=== PATIENT | female | born 1950 | race African-American/Black ===

== ENCOUNTER 2016-06-27 15:05 | Emergency (ER) | payer OTHER ==
[2016-06-27 15:12] VITALS: BP 117/77; PULSE 64; TEMP 98.5; BMI 39.3
--- NOTE | 2016-06-27 15:14 | PDOC ---
Rapid Medical Evaluation Chief Complaint: Pain Time Seen by Provider: 06/27/16 15:07 Medical Evaluation: Allergies Allergy/AdvReac Type Severity Reaction Status Date / Time apple [Apple] Allergy Mild INTESTINAL Verified 06/27/16 15:08 OBSTRUCTION codeine [Codeine] Allergy SHAKING Verified 06/27/16 15:08 ibuprofen Allergy INTESTINAL Verified 06/27/16 15:08 OBSTRUCTION NSAIDS (Non-Steroidal Allergy INTESTINAL Verified 06/27/16 15:08 Anti-Inflamma OBSTRUCTION 06/27/16 15:10 RME; I have performed a brief in person evaluation of this pt CC 3 weeks of right shoulder pain, geeting worse PE; VSS; tender anterior shoulder, limited ROM Xray ordered, no pain meds desired by pt to FT. JR
== END 2016-06-27 16:56 | disposition left against medical advice (07) ==
LOC: JERFT 15:05
DX: M25.511 Pain in right shoulder (principal)
CPT/HCPCS: 73030-TC-RT; 99281-25

== ENCOUNTER 2016-06-27 16:54 | Emergency (ER) | payer OTHER ==
[2016-06-27 16:58] VITALS: BP 128/57; PULSE 65; TEMP 98.3; BMI 39.3
--- NOTE | 2016-06-27 17:26 | PDOC ---
History of Present Illness - General Chief Complaint: Injury Stated Complaint: RT SHOULDER PAIN/ARM PAIN Time Seen by Provider: 06/27/16 17:11 History Source: Patient Exam Limitations: No Limitations - History of Present Illness Initial Comments: 06/27/16 17:21 65 yr female with c/o 3 weeks right shoulder pain. Pt states worse at night pain relieved with naprosyn. Pt denies trauma. no numbness or tingling. Pt is right hand dominant. Extremity Pain Location - Extremity Pain Location Extremity Pain Locations: right: other (shoulder) Past History - Travel Traveled outside of the country in the last 30 days: No Close contact w/someone who was outside of country & ill: No - Past Medical History Allergies/Adverse Reactions: Allergies Allergy/AdvReac Type Severity Reaction Status Date / Time apple [Apple] Allergy Mild INTESTINAL Verified 06/27/16 16:56 OBSTRUCTION codeine [Codeine] Allergy SHAKING Verified 06/27/16 16:56 ibuprofen Allergy INTESTINAL Verified 06/27/16 16:56 OBSTRUCTION NSAIDS (Non-Steroidal Allergy INTESTINAL Verified 06/27/16 16:56 Anti-Inflamma OBSTRUCTION Home Medications: Ambulatory Orders Diphenhydramine HCl [Benadryl Capsule -] 25 mg PO ONCE PRN 06/26/15 Metformin HCl 500 mg PO BID 06/26/15 Albuterol Sulfate Inhaler - [Ventolin HFA Inhaler -] 1 - 2 inh PO Q4H PRN #1 inhaler 06/29/15 Atorvastatin Ca [Lipitor] 10 mg PO HS #30 tablet 02/24/16 Carvedilol [Coreg -] 6.25 mg PO BID #60 tablet 02/24/16 Prednisone [Deltasone -] 10 mg PO ASDIR #30 tab 02/24/16 Valsartan [Diovan] 80 mg PO DAILY #30 tablet 02/24/16 Anemia: No Asthma: Yes Cancer: No Cardiac Disorders: No CVA: No COPD: No CHF: No Dementia: No Diabetes: Yes GI Disorders: Yes (OBSTRUCTION) Disorders: No HTN: No Hypercholesterolemia: No HIV: Yes Liver Disease: No Suicide Attempt (Hx): No Seizures: No Thyroid Disease: No - Surgical History Abdominal Surgery: Yes (tubal ligation) Appendectomy: No Cardiac Surgery: No Cholecystectomy: No Lung Surgery: No Neurologic Surgery: No Orthopedic Surgery: No - Immunization History Immunization Up to Date: Yes - Psycho/Social/Smoking Cessation Hx Anxiety: No Suicidal Ideation: No Smoking Status: No Smoking History: Never smoked Have you smoked in the past 12 months: No Number of Cigarettes Smoked Daily: 0 If you are a former smoker, when did you quit?: 04/2011 Cigars Per Day: 0 Information on smoking cessation initiated: No 'Breaking Loose' booklet given: 08/09/12 Hx Alcohol Use: No Drug/Substance Use Hx: No Substance Use Type: None Hx Substance Use Treatment: No Review of Systems - Review of Systems Able to Perform ROS?: Yes Is the patient limited Romanian proficient: No Constitutional: No: Symptoms Reported HEENTM: No: Symptoms Reported Respiratory: No: Symptoms reported Cardiac (ROS): No: Symptoms Reported ABD/GI: No: Symptoms Reported : No: Symptoms Reported Musculoskeletal: Yes: Symptoms Reported *Physical Exam - Vital Signs Last Vital Signs Temp Pulse Resp BP Pulse Ox 98.3 F 65 18 128/57 100 06/27/16 16:56 06/27/16 16:56 06/27/16 16:56 06/27/16 16:56 06/27/16 16:56 - Physical Exam General Appearance: Yes: Nourished, Appropriately Dressed HEENT: positive: EOMI, ABIGAIL Neck: positive: Supple Respiratory/Chest: positive: Lungs Clear, Normal Breath Sounds Cardiovascular: positive: Regular Rhythm, Regular Rate Musculoskeletal: positive: Normal Inspection Extremity: positive: Normal Capillary Refill, Normal Inspection, Normal Range of Motion, Tender (anterior right shoulder, limited ROM due to pain, no crepitus or bony step off ) Integumentary: positive: Normal Color, Dry, Warm Procedures - Splinting Sling: Yes (right shoulder) Medical Decision Making - Medical Decision Making 06/27/16 17:23 cc: 3 weeks right shoulder pain (Pt left after xray and RME evaluation earlier today, was not seen by any other staff) xray is negative pt has seen her primary for this and was given aleve will place sling and refer to ortho for follow up pt agrees with plan all questions asked and answered. Pt DENIES any allergy to naprosyn 06/27/16 17:24 *DC/Admit/Observation/Transfer Diagnosis at time of Disposition: Shoulder pain, right Qualifiers: Chronicity: acute Qualified Code(s): M25.511 - Pain in right shoulder - Discharge Dispostion Disposition: HOME Condition at time of disposition: Good - Referrals Referrals: Ruthie Azul [Primary Care Provider] - Enmanuel Bay MD [Staff Physician] - - Patient Instructions Additional Instructions: use the sling while awake remove to sleep and bathe continue to take Naprosyn for pain follow with the orthopedist this week or next week avoid lifting, carrying heavy objects with right arm when you can use the left return to ER for any worsening symptoms
== END 2016-06-27 17:36 | disposition home or self-care (01) ==
LOC: JERFT 16:54
DX: M25.511 Pain in right shoulder (principal); J45.909 Unspecified asthma, uncomplicated; E11.9 Type 2 diabetes mellitus without complications; Z21 Asymptomatic human immunodeficiency virus [HIV] infection status; Z87.891 Personal history of nicotine dependence

== ENCOUNTER 2016-11-15 22:43 | Emergency (ER) | payer OTHER ==
[2016-11-15 23:15] VITALS: BP 131/68; PULSE 74; TEMP 98.5; BMI 42.0
--- NOTE | 2016-11-15 23:15 | PDOC ---
History of Present Illness <RorySharilucien Walker - Last Filed: 11/15/16 23:16> - History of Present Illness Initial Comments: 11/16/16 00:19 Patient is a 65 year old female with significant medical hx of asthma, COPD, DM , and CHF who is presenting to the ED with shortness of breath and anxiety from this evening. The patient reports she recently found out her grandson was shot and killed a few hours prior to onset of symptoms. Patient states she feels as if she cant breathe and she suspects her symptoms are from crying too hard. She states that she uses a pump and nebulizer at home but does not have them on her. Patient denies any fever, chills, chest pain, diaphoresis, or cough. Allergies: codeine, NSAIDS, ibuprofen, apple Surgical Hx: Tubal ligation Social Hx: Former smoker (quit 5 years ago). No alcohol or drug use reported <Nely Portillo - Last Filed: 11/16/16 00:23> - General Chief Complaint: Psychiatric Stated Complaint: ASTHMA ATTACK Past History - Past Medical History Anemia: No Asthma: Yes Cancer: No Cardiac Disorders: No CVA: No COPD: No CHF: No Dementia: No Diabetes: Yes GI Disorders: Yes (OBSTRUCTION) Disorders: No HTN: No Hypercholesterolemia: No HIV: Yes Liver Disease: No Suicide Attempt (Hx): No Seizures: No Thyroid Disease: No - Surgical History Abdominal Surgery: Yes (tubal ligation) Appendectomy: No Cardiac Surgery: No Cholecystectomy: No Lung Surgery: No Neurologic Surgery: No Orthopedic Surgery: No - Immunization History Immunization Up to Date: Yes - Psycho/Social/Smoking Cessation Hx Anxiety: No Suicidal Ideation: No Smoking Status: No Smoking History: Never smoked Have you smoked in the past 12 months: No Number of Cigarettes Smoked Daily: 0 If you are a former smoker, when did you quit?: 04/2011 Cigars Per Day: 0 'Breaking Loose' booklet given: 08/09/12 Hx Alcohol Use: No Drug/Substance Use Hx: No Substance Use Type: None Hx Substance Use Treatment: No <Shari Valadez - Last Filed: 11/15/16 23:16> <Nely Portillo - Last Filed: 11/16/16 00:23> - Past Medical History Allergies/Adverse Reactions: Allergies Allergy/AdvReac Type Severity Reaction Status Date / Time apple [Apple] Allergy Mild INTESTINAL Verified 06/27/16 16:56 OBSTRUCTION codeine [Codeine] Allergy SHAKING Verified 06/27/16 16:56 ibuprofen Allergy INTESTINAL Verified 06/27/16 16:56 OBSTRUCTION NSAIDS (Non-Steroidal Allergy INTESTINAL Verified 06/27/16 16:56 Anti-Inflamma OBSTRUCTION Home Medications: Ambulatory Orders Diphenhydramine HCl [Benadryl Capsule -] 25 mg PO ONCE PRN 06/26/15 Metformin HCl 500 mg PO BID 06/26/15 Albuterol Sulfate Inhaler - [Ventolin HFA Inhaler -] 1 - 2 inh PO Q4H PRN #1 inhaler 06/29/15 Atorvastatin Ca [Lipitor] 10 mg PO HS #30 tablet 02/24/16 Carvedilol [Coreg -] 6.25 mg PO BID #60 tablet 02/24/16 Prednisone [Deltasone -] 10 mg PO ASDIR #30 tab 02/24/16 Valsartan [Diovan] 80 mg PO DAILY #30 tablet 02/24/16 Review of Systems - Review of Systems Comments:: 11/16/16 00:19 CONSTITUTIONAL: Absent: fever, chills, diaphoresis, generalized weakness, malaise, loss of appetite HEENT: Absent: rhinorrhea, nasal congestion, throat pain, throat swelling, difficulty swallowing, mouth swelling, ear pain, eye pain, visual changes CARDIOVASCULAR: Absent: chest pain, syncope, palpitations, irregular heart rate, lightheadedness , peripheral edema RESPIRATORY: Present: shortness of breath Absent: cough, dyspnea with exertion, orthopnea, wheezing, stridor, hemoptysis GASTROINTESTINAL: Absent: abdominal pain, abdominal distension, nausea, vomiting, diarrhea, constipation, melena, hematochezia GENITOURINARY: Absent: dysuria, frequency, urgency, hesitancy, hematuria, flank pain, genital pain MUSCULOSKELETAL: Absent: myalgia, arthralgia, joint swelling SKIN: Absent: rash, itching, pallor HEMATOLOGIC/IMMUNOLOGIC: Absent: easy bleeding, easy bruising, lymphadenopathy, frequent infections ENDOCRINE: Absent: unexplained weight gain, unexplained weight loss, heat intolerance, cold intolerance NEUROLOGIC: Absent: headache, focal weakness or paresthesia, dizziness, unsteady gait, seizure, mental status changes, bladder or bowel incontinence. PSYCHIATRIC: Present: anxiety Absent: depression, suicidal or homicidal ideation, hallucinations <Nely Portillo - Last Filed: 11/16/16 00:23> *Physical Exam - Vital Signs Last Vital Signs Temp Pulse Resp BP Pulse Ox 98.5 F 74 14 131/68 100 11/15/16 23:11 11/15/16 23:11 11/15/16 23:11 11/15/16 23:11 11/15/16 23:11 - Physical Exam Comments: 11/16/16 00:20 GENERAL: Well developed, well nourished. Awake and alert. No acute distress. HEENT: Normocephalic, atraumatic. PERRLA, EOMI. No conjunctival pallor. Sclera are non- icteric. Moist mucous membranes. Oropharynx is clear. NECK: Supple. Full ROM. No JVD. Carotid pulses 2+ and symmetric, without bruits. No thyromegaly. No lymphadenopathy. CARDIOVASCULAR: Regular rate and rhythm. No murmurs, rubs, or gallops. Distal pulses are 2+ and symmetric. PULMONARY: Good breath movement. No evidence of respiratory distress. Lungs clear to auscultation bilaterally. No wheezing, rales or rhonchi. ABDOMINAL: Soft. Protuberant. Non-tender. Non-distended. No rebound or guarding. No organomegaly. Normoactive bowel sounds. MUSCULOSKELETAL: Normal range of motion at all joints. No bony deformities or tenderness. No CVA tenderness. EXTREMITIES: No cyanosis. No clubbing. No edema. No calf tenderness. SKIN: Warm and dry. Normal capillary refill. No rashes. No jaundice. NEUROLOGICAL: Alert, awake, appropriate. No gross focal neurological deficits. Cranial nerves 2-12 intact. Normal speech. Gait is normal without ataxia. PSYCHIATRIC: Cooperative. Good eye contact. Appropriate mood and affect. <Nely Portillo - Last Filed: 11/16/16 00:23> ED Treatment Course - Medications Given in the ED: ED Medications Discontinued Medications Generic Name Dose Route Start Last Admin Trade Name Calvinq PRN Reason Stop Dose Admin Albuterol Sulfate 1 amp 11/15/16 23:17 11/15/16 23:19 Ventolin 0.083% Nebulizer Soln - NEB 11/15/16 23:18 1 amp ONCE ONE Administration Alprazolam 0.25 mg 11/15/16 23:17 11/15/16 23:22 Xanax - PO 11/15/16 23:18 0.25 mg ONCE ONE Administration <Nely Portillo - Last Filed: 11/16/16 00:23> *DC/Admit/Observation/Transfer <Shari Valadez - Last Filed: 11/15/16 23:16> - Attestations Scribe Attestion: 11/16/16 00:23 Documentation prepared by Nely Portillo, acting as biomedical field service engineer for Shari Valadez MD. <Nely Portillo - Last Filed: 11/16/16 00:23> Diagnosis at time of Disposition: Asthma exacerbation - Discharge Dispostion Disposition: HOME Condition at time of disposition: Stable - Referrals Referrals: Ruthie Azul [Primary Care Provider] - - Patient Instructions Printed Discharge Instructions: DI for Asthma -- Adult Additional Instructions: please return for any worsening symptoms
[2016-11-15] MEDS ORDERED: ALPRAZolam 0.25 MG TABLET PO ONE (23:17)
[2016-11-15] MEDS ORDERED: ALBUTEROL SO4 0.083% IH SOL 2.5 MG/3 ML VIAL.NEB. NEB ONE (23:17)
[2016-11-15] MEDS ORDERED: ALPRAZolam 0.25 MG TABLET ONE (23:21)
== END 2016-11-16 00:25 | disposition home or self-care (01) ==
LOC: JER 22:43
PROC: 3E0F7GC Introduction of Other Therapeutic Substance into Respiratory Tract, Via Natural or Artificial Opening (ICD-10-PCS; principal; 2016-11-15)
DX: J45.901 Unspecified asthma with (acute) exacerbation (principal); J44.9 Chronic obstructive pulmonary disease, unspecified; E11.9 Type 2 diabetes mellitus without complications; Z79.84 Long term (current) use of oral hypoglycemic drugs
CPT/HCPCS: 94640; 99281-25

== ENCOUNTER 2017-03-13 08:51 | Emergency (ER) | payer OTHER ==
[2017-03-13 09:01] VITALS: BP 125/70; PULSE 90; TEMP 98.6; BMI 37.8
[2017-03-13] MEDS ORDERED: ALBUTEROL SO4 2.5/IPRATROPIUM 0.5 INH SOL 3 ML VIAL.NEB. NEB ONE ×2 (09:07)
--- NOTE | 2017-03-13 09:12 | PDOC ---
Attending Attestation - Resident Resident Name: Enriqueta Tijerina - HPI HPI: 03/13/17 09:55 Pt presents to the ED complaining of wheezing and shortness of breath consistent with prior asthma exacerbations. Denies fever or productive cough. No history of intubations, last admission 2 years ago. History of chronic daily steroid use, stopped one year ago. - Physicial Exam PE: 03/13/17 09:57 Agree with resident exam. Patient is speaking in full sentences with minimal respiratory distress. + wheezing and slightly decreased air entry in bases. - Medical Decision Making 03/13/17 09:58 Pt presents to the ED complaining of wheezing and shortness of breath. Will treat with nebs and steriods and discharge home if improved.
[2017-03-13] MEDS ORDERED: methylPREDNISolone NA SUCC 125 MG/2 ML VIAL IVPB ONE (09:23)
[2017-03-13] MEDS ORDERED: predniSONE 20 MG TABLET (UD) PO ONE (09:32)
[2017-03-13] MEDS ORDERED: predniSONE 20 MG TABLET (UD) ONE (09:36)
--- NOTE | 2017-03-13 09:36 | PDOC ---
History of Present Illness - General Chief Complaint: Asthma Stated Complaint: ASTHMA Time Seen by Provider: 03/13/17 09:05 History Source: Patient Exam Limitations: No Limitations - History of Present Illness Initial Comments: This is a 66 YOF with h/o asthma (triggers cold weather and allergens, never intubated, admitted once/year for several years, never ICU, last Prednisone 5 mo ago and had been on it for a year) and NIDDM who presents c/o SOB, wheezing, cough, and head-to-toe body aches for the past two days. Her breathing and coughing worsens when she lays down flat. She tried two Albuterol nebulizer treatments with the last one at 4am but these did not help and her symptoms are worsening. She additionally has been taking Mucinex. 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 She sees Dr. Valadez and has previously had a normal echocardiogram. She smoked for 50 years until she was diagnosed with asthma about 8 years ago, but only has about a 10 pack-year history. Past History - Past Medical History Allergies/Adverse Reactions: Allergies Allergy/AdvReac Type Severity Reaction Status Date / Time apple [Apple] Allergy Mild INTESTINAL Verified 03/13/17 08:55 OBSTRUCTION codeine [Codeine] Allergy SHAKING Verified 03/13/17 08:55 ibuprofen Allergy INTESTINAL Verified 03/13/17 08:55 OBSTRUCTION NSAIDS (Non-Steroidal Allergy INTESTINAL Verified 03/13/17 08:55 Anti-Inflamma OBSTRUCTION Home Medications: Ambulatory Orders Diphenhydramine HCl [Benadryl Capsule -] 25 mg PO ONCE PRN 06/26/15 Metformin HCl 500 mg PO BID 06/26/15 Albuterol Sulfate Inhaler - [Ventolin HFA Inhaler -] 1 - 2 inh PO Q4H PRN #1 inhaler 06/29/15 Atorvastatin Ca [Lipitor] 10 mg PO HS #30 tablet 02/24/16 Carvedilol [Coreg -] 6.25 mg PO BID #60 tablet 02/24/16 Prednisone [Deltasone -] 10 mg PO ASDIR #30 tab 02/24/16 Valsartan [Diovan] 80 mg PO DAILY #30 tablet 02/24/16 Calcium Carbonate/Vitamin D3 [Calcium 600 + Vit D Tablet] 1 each PO DAILY Ranitidine [Zantac -] 150 mg PO HS 03/13/17 Salmeterol Xinafoate [Serevent Diskus] 50 mcg IH BID 03/13/17 Anemia: No Asthma: Yes Cancer: No Cardiac Disorders: No CVA: No COPD: No CHF: No Dementia: No Diabetes: Yes GI Disorders: Yes (sbo) Disorders: No HTN: No Hypercholesterolemia: No Liver Disease: No Seizures: No Thyroid Disease: No - Surgical History Abdominal Surgery: Yes (tubal ligation) Appendectomy: No Cardiac Surgery: No Cholecystectomy: No Lung Surgery: No Neurologic Surgery: No Orthopedic Surgery: No - Immunization History Immunization Up to Date: Yes - Suicide/Smoking/Psychosocial Hx Smoking Status: No Smoking History: Never smoked Have you smoked in the past 12 months: No Number of Cigarettes Smoked Daily: 0 If you are a former smoker, when did you quit?: 04/2011 Cigars Per Day: 0 Information on smoking cessation initiated: No 'Breaking Loose' booklet given: 08/09/12 Hx Alcohol Use: No Drug/Substance Use Hx: No Substance Use Type: None Hx Substance Use Treatment: No *Physical Exam - Vital Signs Last Vital Signs Temp Pulse Resp BP Pulse Ox 98.6 F 90 20 125/70 93 L 03/13/17 08:55 03/13/17 08:55 03/13/17 08:55 03/13/17 08:55 03/13/17 08:55 - Physical Exam General Appearance: Yes: Nourished, Appropriately Dressed, Mild Distress, Obese , Other (pleasant older woman who answers appropriately, sitting upright on DuoNeb) HEENT: positive: EOMI, Normal Voice, Hearing Grossly Normal. negative: Scleral Icterus (R), Scleral Icterus (L), Nasal Congestion Neck: positive: Trachea midline, Supple. negative: Tender, Rigid Respiratory/Chest: positive: Lungs Clear, Normal Breath Sounds, Respiratory Distress, Other (frequent cough, decreased air movement but not poor, bilateral expiratory wheezes and rhonchi, crackles at left>right base). negative: Stridor Cardiovascular: positive: Regular Rhythm, Regular Rate. negative: Murmur Gastrointestinal/Abdominal: positive: Normal Bowel Sounds, Soft. negative: Tender, Organomegaly, Pulsatile Mass, Guarding Musculoskeletal: positive: Normal Inspection. negative: Decreased Range of Motion, Vertebral Tenderness Extremity: positive: Normal Capillary Refill, Normal Inspection, Normal Range of Motion. negative: Tender, Cyanosis Integumentary: positive: Normal Color, Dry, Warm. negative: Erythema, Rash, Bruising Neurologic: positive: director pharmacology II-XII NML intact, Fully Oriented, Alert, Normal Mood/ Affect, Normal Response, Motor Strength 08/26 ED Treatment Course - RADIOLOGY Radiology Studies Ordered: Category Date Time Status CHEST PA & LAT [RAD] Stat Radiology 03/13/17 09:23 Ordered - Medications Given in the ED: ED Medications Discontinued Medications Generic Name Dose Route Start Last Admin Trade Name Freq PRN Reason Stop Dose Admin Albuterol/Ipratropium 3 amp 03/13/17 09:07 03/13/17 09:02 Duoneb - NEB 03/13/17 09:08 3 amp ONCE ONE Administration Medical Decision Making - Medical Decision Making PVR after 1 DuoNeb is 310 290 250 03/13/17 10:48 Repeat PVR after 3rd DuoNeb is 330, 340, 360. No wheezing or crackles, good air movement. Patient has already called Dr. Valadez. She has a large supply of Prednisone at home from prior Rx. She is instructed to take 40 mg/day for four days starting tomorrow. She will default to Dr. Valadez's recommendation if he has other ideas. She is appropriate for discharge home and close OP followup. Return precautions are discussed. *DC/Admit/Observation/Transfer Diagnosis at time of Disposition: Asthma exacerbation - Discharge Dispostion Disposition: HOME Condition at time of disposition: Stable Admit: No - Referrals - Patient Instructions Printed Discharge Instructions: Asthma -- Adult Additional Instructions: You were seen in the ER for asthma exacerbation. We gave you Prednisone and three DuoNeb asthma treatments, which seemed to help your symptoms and made you feel much better. We did a chest x-ray which did not show any signs of pneumonia. Please take Prednisone 40 mg/day, starting tomorrow, for four days. If Dr. Valadez has other recommendations when he calls you back, follow his recommendation instead. Also follow up with Dr. Valadez, or you can return to the ER for any new or worsening symptoms like repeat exacerbation that you cannot control with home nebulizer treatments, fever, chest pain, or other symptoms. - Post Discharge Activity
== END 2017-03-13 11:31 | disposition home or self-care (01) ==
LOC: JER 08:51
PROC: 3E0F7GC Introduction of Other Therapeutic Substance into Respiratory Tract, Via Natural or Artificial Opening (ICD-10-PCS; principal; 2017-03-13)
DX: J45.901 Unspecified asthma with (acute) exacerbation (principal); Z87.19 Personal history of other diseases of the digestive system
CPT/HCPCS: 94640; Z7984; 71020-TC; 99282-25

== ENCOUNTER 2017-08-08 19:42 | Emergency (ER) | payer OTHER ==
--- NOTE | 2017-08-08 20:36 | PDOC ---
Rapid Medical Evaluation Time Seen by Provider: 08/08/17 20:30 Medical Evaluation: Allergies Allergy/AdvReac Type Severity Reaction Status Date / Time apple [Apple] Allergy Mild INTESTINAL Verified 03/13/17 08:55 OBSTRUCTION codeine [Codeine] Allergy SHAKING Verified 03/13/17 08:55 ibuprofen Allergy INTESTINAL Verified 03/13/17 08:55 OBSTRUCTION NSAIDS (Non-Steroidal Allergy INTESTINAL Verified 03/13/17 08:55 Anti-Inflamma OBSTRUCTION I have performed a brief in-person evaluation of this patient. The patient presents with a chief complaint of: sore throat x 8 days; family member had strep throat. Her PMD, Dr. Azul, started her on Amoxicillin 500mg TID 4 days ago. She is taking Naproxen for pain. Pertinent physical exam findings: erythematous tonsils without exudate or edema. I have ordered the following: nothing; patient may need steroids for comfort, although she is a diabetic The patient will proceed to the ED for further evaluation.
[2017-08-08 20:37] VITALS: BP 129/59; PULSE 81; TEMP 99; BMI 37.4
== END 2017-08-08 22:16 | disposition left against medical advice (07) ==
LOC: JERFT 19:42
DX: R07.0 Pain in throat (principal); Z88.8 Allergy status to other drugs, medicaments and biological substances; Z91.018 Allergy to other foods
CPT/HCPCS: 99281-25

== ENCOUNTER 2019-01-31 18:10 | Emergency (ER) | payer OTHER ==
[2019-01-31 18:26] VITALS: BP 155/68; PULSE 85; TEMP 98.8; BMI 37.4
--- NOTE | 2019-01-31 18:26 | PDOC ---
Rapid Medical Evaluation Time Seen by Provider: 01/31/19 18:16 Medical Evaluation: Allergies Allergy/AdvReac Type Severity Reaction Status Date / Time apple [Apple] Allergy Mild INTESTINAL Verified 01/31/19 18:17 OBSTRUCTION codeine [Codeine] Allergy SHAKING Verified 01/31/19 18:17 ibuprofen Allergy INTESTINAL Verified 01/31/19 18:17 OBSTRUCTION NSAIDS (Non-Steroidal Allergy INTESTINAL Verified 01/31/19 18:17 Anti-Inflamma OBSTRUCTION 01/31/19 18:23 Pt c/o: right suprapubic pain to flank and rt right, mild bladder pain after urination, on keflex for skin abscess to neck Pt on brief exam: mild right suprapubic tenderness. rt flank and mild rt cva tenderness, vss Pt ordered for: ua ucx, consider u/s labs if - Pt ot proceed to the ED Discharge Disposition - Diagnosis Abdominal pain - Referrals - Patient Instructions - Post Discharge Activity
[2019-01-31 19:54] LABS: URINE APPEARANCE CLEAR; URINE BILIRUBIN NEGATIVE (NEGATIVE); URINE COLOR YELLOW; URINE GLUCOSE (UA) NEGATIVE (NEGATIVE); URINE KETONE TRACE (NEGATIVE); URINE LEUK ESTERASE NEGATIVE (NEGATIVE); URINE NITRITE NEGATIVE (NEGATIVE); URINE PROTEIN NEGATIVE (NEGATIVE); URINE UROBILINOGEN 0.2 mg/dL (0.2-1.0)
--- NOTE | 2019-01-31 20:16 | PDOC ---
History of Present Illness - General Chief Complaint: Pain Stated Complaint: RIGHT SIDE PAIN Time Seen by Provider: 01/31/19 18:16 History Source: Patient, Old Records Exam Limitations: No Limitations - History of Present Illness Travel History: No Initial Comments: 01/31/19 20:12 HISTORY OF PRESENT ILLNESS: This is a 68-year-old woman with past medical history of steroid-induced diabetes who presents to the emergency department for evaluation of right-sided abdominal pain for the past 4 days. Patient reports the pain worsens after voiding and improves with a full bladder. Patient has been taking Keflex for cellulitis starting on Monday. Patient denies any fevers or chills, dysuria, hematuria, rectal bleeding, nausea, vomiting, constipation or diarrhea. No recent travel or sick contacts. PAST MEDICAL HISTORY: Diabetes SURGICAL HISTORY: Denies ALLERGIES: NSAIDs, codeine REVIEW OF SYSTEMS General/Constitutional: Denies fever or chills. Denies weakness, weight change. HEENT: Denies change in vision. Denies ear pain or discharge. Denies sore throat. Cardiovascular: Denies chest pain or shortness of breath. Respiratory: Denies cough, wheezing, or hemoptysis. Gastrointestinal: See HPI Genitourinary: Denies dysuria, frequency, or change in urination. Musculoskeletal: Denies joint or muscle swelling or pain. Denies neck or back pain. Skin and breasts: Denies rash or easy bruising. Neurologic: Denies headache, vertigo, loss of consciousness, or loss of sensation. Psychiatric: Denies depression or anxiety. Endocrine: Denies increased thirst. Denies abnormal weight change. Hematologic/Lymphatic: Denies anemia, easy bleeding, or history of blood clots. Allergic/Immunologic: Denies hives or skin allergy. Denies latex allergy. PHYSICAL EXAM General Appearance: Well-appearing, appropriately dressed. No apparent distress , no intoxication. Respiratory/Chest: Lungs CTAB. No shortness of breath, chest tenderness, respiratory distress, accessory muscle use. No crackles, rales, rhonchi, stridor , wheezing, dullness Cardiovascular: RRR. S1, S2. No JVD, murmur, bradycardia, tachycardia. Gastrointestinal/Abdominal: Normal bowel sounds. Abdomen soft, non-distended. Right lower quadrant tenderness without guarding or rebound tenderness. No organomegaly, pulsatile mass, hernia, hepatomegaly, splenomegaly. Lymphatic: No adenopathy, tenderness. Neurologic: hot box spotter II-XII intact. Fully oriented, alert. Appropriate mood/affect. Motor strength 5/5. No appreciable EOM palsy, facial droop or sensory deficit. Past History - Past Medical History Allergies/Adverse Reactions: Allergies Allergy/AdvReac Type Severity Reaction Status Date / Time apple [Apple] Allergy Mild INTESTINAL Verified 01/31/19 18:17 OBSTRUCTION codeine [Codeine] Allergy SHAKING Verified 01/31/19 18:17 ibuprofen Allergy INTESTINAL Verified 01/31/19 18:17 OBSTRUCTION NSAIDS (Non-Steroidal Allergy INTESTINAL Verified 01/31/19 18:17 Anti-Inflamma OBSTRUCTION Home Medications: Ambulatory Orders Diphenhydramine HCl [Benadryl Capsule -] 25 mg PO ONCE PRN 06/26/15 metFORMIN HCL [Metformin HCl] 500 mg PO BID 06/26/15 Albuterol Sulfate Inhaler - [Ventolin HFA Inhaler -] 1 - 2 inh PO Q4H PRN #1 inhaler 06/29/15 Atorvastatin Ca [Lipitor] 10 mg PO HS #30 tablet 02/24/16 Carvedilol [Coreg -] 6.25 mg PO BID #60 tablet 02/24/16 Valsartan [Diovan] 80 mg PO DAILY #30 tablet 02/24/16 predniSONE [Deltasone -] 10 mg PO ASDIR #30 tab 02/24/16 Calcium Carbonate/Vitamin D3 [Calcium 600 + Vit D Tablet] 1 each PO DAILY Ranitidine [Zantac -] 150 mg PO HS 03/13/17 Salmeterol Xinafoate [Serevent Diskus] 50 mcg IH BID 03/13/17 Anemia: No Asthma: Yes Cancer: No Cardiac Disorders: No CVA: No COPD: No CHF: No Dementia: No Diabetes: Yes GI Disorders: Yes (sbo) Disorders: No HTN: No Hypercholesterolemia: No Liver Disease: No Seizures: No Thyroid Disease: No - Surgical History Abdominal Surgery: Yes (tubal ligation) Appendectomy: No Cardiac Surgery: No Cholecystectomy: No Lung Surgery: No Neurologic Surgery: No Orthopedic Surgery: No - Immunization History Immunization Up to Date: Yes - Psycho Social/Smoking Cessation Hx Smoking Status: No Smoking History: Never smoked Have you smoked in the past 12 months: No Number of Cigarettes Smoked Daily: 0 If you are a former smoker, when did you quit?: 04/2011 Cigars Per Day: 0 Information on smoking cessation initiated: No 'Breaking Loose' booklet given: 08/09/12 Hx Alcohol Use: No Drug/Substance Use Hx: No Substance Use Type: None Hx Substance Use Treatment: No *Physical Exam - Vital Signs Last Vital Signs Temp Pulse Resp BP Pulse Ox 98.8 F 85 17 155/68 99 01/31/19 18:19 01/31/19 18:19 01/31/19 18:19 01/31/19 18:19 01/31/19 18:19 ED Treatment Course - LABORATORY CBC & Chemistry Diagram: 01/31/19 20:45 01/31/19 20:33 - ADDITIONAL ORDERS Additional order review: Laboratory Results 01/31/19 19:42 Urine Color Yellow Urine Appearance Clear Urine pH 5.0 Ur Specific [place] 1.022 Urine Protein Negative Urine Glucose (UA) Negative Urine Ketones Trace H Urine Blood Negative Urine Nitrite Negative Urine Bilirubin Negative Urine Urobilinogen 0.2 Ur Leukocyte Esterase Negative - RADIOLOGY Radiology Studies Ordered: Category Date Time Status ABDOMEN & PELVIS CT WITH CONTR [CT] Stat CT Scan 01/31/19 19:57 Ordered Medical Decision Making - Medical Decision Making 01/31/19 20:14 A/P: 68-year-old woman with right lower quadrant pain for 4 days Differential diagnosis includes but is not limited to-appendicitis, colitis, neoplasm, pyelonephritis, cystitis 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 Abdominal labs Urinalysis, urine culture CT abdomen and pelvis with IV contrast Reassess 01/31/19 23:40 CT scan is read by Dr. Whiteside: No definite CT findings of acute pathology identified. Possible diffuse hepatic steatosis if clinically indicated correlate sonography. Status post hysterectomy. The appendix appears unremarkable. Patient reports pain is improved after receiving Tylenol. Repeat abdominal exam is benign. I will discharge patient home to follow-up with her primary doctor for reevaluation as needed. Laboratory and CT findings have been discussed with the patient was verbalized understanding of discharge instructions. All questions have been asked and answered. Patient is agreement with current plan and will follow up with her primary doctor. Discharge - Discharge Information Problems reviewed: Yes Clinical Impression/Diagnosis: Abdominal pain Qualifiers: Abdominal location: right lower quadrant Qualified Code(s): R10.31 - Right lower quadrant pain Condition: Fair Disposition: HOME - Admission No - Follow up/Referral Referrals: Ruthie Azul [Primary Care Provider] - - Patient Discharge Instructions Additional Instructions: Your CAT scan today showed no acute findings. Your emergency department visit is not complete until you follow-up with your primary doctor. Return to the ER for any new or worsening symptoms. Thank you very much for choosing us to provide your emergent health care needs. - Post Discharge Activity
[2019-01-31 20:49] LABS: BASO % 0.4 % (0-2.0); HEMATOCRIT 38.8 % (32.4-45.2); LYMPH % 22.4 % (8-40); MCH 23.5 pg (25.7-33.7); MEAN CELL VOLUME 75.9 fl (80-96); MEAN PLT VOLUME 7.9 fl (7.5-11.1); MONO % 6.6 % (3.8-10.2); NEUT % 69.6 % (42.8-82.8); PLATELET COUNT 232 K/MM3 (134-434); RBC 5.11 M/mm3 (3.60-5.2); RDW 17.3 % (11.6-15.6); WHITE BLOOD COUNT 12.1 K/mm3 (4.0-10.0)
[2019-01-31] MEDS ORDERED: ACETAMINOPHEN 1000 MG/100 ML VIAL (NON FORMULARY) IVPB ONE (21:02)
[2019-01-31] MEDS ORDERED: ACETAMINOPHEN INJECTION 100 ML IVPB ONE (21:03)
[2019-01-31 21:16] LABS: ALBUMIN 3.8 g/dl (3.4-5.0); BILIRUBIN,TOTAL 0.4 mg/dL (0.2-1); BLOOD UREA NITROGEN 9.3 mg/dL (7-18); CALCIUM 9.1 mg/dL (8.5-10.1); CREATININE 0.7 mg/dL (0.55-1.3); POTASSIUM 4.2 mmol/L (3.5-5.1)
== END 2019-01-31 23:58 | disposition home or self-care (01) ==
LOC: JER 18:10
PROC: 3E033NZ Introduction of Analgesics, Hypnotics, Sedatives into Peripheral Vein, Percutaneous Approach (ICD-10-PCS; principal; 2019-01-31)
DX: R10.31 Right lower quadrant pain (principal); E09.9 Drug or chemical induced diabetes mellitus without complications; T38.0X5A Adverse effect of glucocorticoids and synthetic analogues, initial encounter; Y92.89 Other specified places as the place of occurrence of the external cause; Z79.84 Long term (current) use of oral hypoglycemic drugs; J45.909 Unspecified asthma, uncomplicated; Z87.19 Personal history of other diseases of the digestive system; Z88.5 Allergy status to narcotic agent; Z88.6 Allergy status to analgesic agent; Z91.018 Allergy to other foods; Z79.2 Long term (current) use of antibiotics
CPT/HCPCS: 36415; 74177-TC; 80053; 81003; 83690; 85025; 87086; 99282-25; J0131

== ENCOUNTER 2020-09-09 04:06 | Inpatient (IN) | payer OTHER ==
[2020-09-09] MEDS ORDERED: LACTATED RINGERS SOLUTION 1000 ML INFUS.BAG IV STA (04:56)
[2020-09-09 05:00] LABS: BASO % 0.2 % (0-2.0); EOS % 1.1 % (0-4.5); HEMATOCRIT 36.3 % (32.4-45.2); HEMOGLOBIN 11.6 GM/dL (10.7-15.3); MCH 23.9 pg (25.7-33.7); MCHC 31.9 g/dl (32.0-36.0); MEAN CELL VOLUME 74.7 fl (80-96); MEAN PLT VOLUME 8.3 fl (7.5-11.1); MONO % 5.2 % (3.8-10.2); NEUT % 81.5 % (42.8-82.8); PLATELET COUNT 229 K/MM3 (134-434); RBC 4.85 M/mm3 (3.60-5.2)
[2020-09-09] MEDS ORDERED: ONDANSETRON 4 MG/2 ML VIAL IVPUSH ONE (05:02)
[2020-09-09] MEDS ORDERED: ACETAMINOPHEN 1000 MG/100 ML VIAL (NON FORMULARY) IVPB ONE ×2 (05:02→11:30)
[2020-09-09 05:12] LABS: SODIUM 139 mmol/L (136-145)
[2020-09-09 05:15] LABS: ALBUMIN 3.8 g/dl (3.4-5.0); BLOOD UREA NITROGEN 6.1 mg/dL (7-18); CO2 30 mmol/L (21-32); GLUCOSE,RANDOM 158 mg/dL (74-106); LIPASE 78 U/L (73-393); MAGNESIUM 1.6 mg/dL (1.8-2.4)
[2020-09-09 05:18] LABS: SGOT/AST 12 U/L (15-37); SGPT/ALT 15 U/L (13-61)
[2020-09-09 05:19] LABS: BILIRUBIN,TOTAL 0.4 mg/dL (0.2-1)
[2020-09-09 05:20] LABS: TOT PROT 7.1 g/dl (6.4-8.2)
[2020-09-09] MEDS ORDERED: ACETAMINOPHEN INJECTION 100 ML IVPB ONE ×2 (05:20→10:55)
[2020-09-09 05:21] LABS: ALK PHOS 84 U/L (45-117)
[2020-09-09 05:27] LABS: ANION GAP 4 MMOL/L (8-16); CHLORIDE 106 mmol/L (98-107); CREATININE 0.7 mg/dL (0.55-1.3)
[2020-09-09 05:59] LABS: URINE APPEARANCE CLEAR; URINE BILIRUBIN NEGATIVE (NEGATIVE); URINE COLOR YELLOW; URINE GLUCOSE (UA) NEGATIVE (NEGATIVE); URINE KETONE TRACE (NEGATIVE); URINE LEUK ESTERASE NEGATIVE (NEGATIVE); URINE NITRITE NEGATIVE (NEGATIVE); URINE PROTEIN NEGATIVE (NEGATIVE)
[2020-09-09] MEDS ORDERED: MAGNESIUM OXIDE 400 MG TABLET (FP) PO ONE (06:23)
[2020-09-09] MEDS ORDERED: MAGNESIUM 1GM/D5W - 1 GM/100 ML IVPB IVPB ONE (06:43)
[2020-09-09] MEDS: LACTATED RINGERS SOLUTION 1,000 ML/1,000 ML INFUS.BAG IV SCH ×2 (07:26→14:51)
[2020-09-09] MEDS ORDERED: morphine SULFATE 4 MG/ML VIAL ONE (07:30)
[2020-09-09] MEDS ORDERED: morphine CARPU-JECT 4 MG/1 ML DISP.SYRIN IVPUSH ONE (07:37)
[2020-09-09] MEDS ORDERED: LABETALOL HCL 5 MG/1 ML (100MG/20 ML VIAL) IVPUSH PRN (09:20)
[2020-09-09] MEDS ORDERED: ALBUTEROL SO4 2.5/IPRATROPIUM 0.5 INH SOL 3 ML VIAL.NEB. NEB PRN (09:21)
[2020-09-09] MEDS ORDERED: SALMETEROL XINAFOATE 50 MCG IH SCH (10:00)
[2020-09-09] MEDS: INSULIN SLIDING SCALE (NOVOLOG) 1 VIAL SQ SCH ×3 (10:59→21:22)
[2020-09-09] MEDS: PANTOPRAZOLE SODIUM 40 MG VIAL IVPUSH SCH (12:22)
[2020-09-09] MEDS ORDERED: PANTOPRAZOLE SODIUM 40 MG VIAL ONE (12:23)
[2020-09-09] MEDS: ACETAMINOPHEN 1000 MG/100 ML VIAL (NON FORMULARY) IVPB PRN (20:29)
[2020-09-10] MEDS: ACETAMINOPHEN 1000 MG/100 ML VIAL (NON FORMULARY) IVPB PRN ×3 (02:02→23:38)
[2020-09-10] MEDS: INSULIN SLIDING SCALE (NOVOLOG) 1 VIAL SQ SCH ×4 (06:07→21:16)
[2020-09-10] MEDS: LACTATED RINGERS SOLUTION 1,000 ML/1,000 ML INFUS.BAG IV SCH ×2 (08:08→13:35)
[2020-09-10] MEDS: ENOXAPARIN NA (PORCINE) 40 MG/0.4 ML DISP.SYRIN SQ SCH (10:03)
[2020-09-10] MEDS: PANTOPRAZOLE SODIUM 40 MG VIAL IVPUSH SCH (10:04)
[2020-09-10] MEDS: ONDANSETRON 4 MG/2 ML VIAL IVPUSH PRN (12:45)
[2020-09-10 13:00] LABS: BASO % 0.1 % (0-2.0); EOS % 0.4 % (0-4.5); HEMOGLOBIN 12.1 GM/dL (10.7-15.3); LYMPH % 11.1 % (8-40); MCH 23.9 pg (25.7-33.7); MCHC 31.8 g/dl (32.0-36.0); MONO % 5.8 % (3.8-10.2); NEUT % 82.6 % (42.8-82.8); PLATELET COUNT 240 K/MM3 (134-434); RBC 5.07 M/mm3 (3.60-5.2); RDW 17.8 % (11.6-15.6); WHITE BLOOD COUNT 11.7 K/mm3 (4.0-10.0)
[2020-09-10 13:13] LABS: ALBUMIN 3.5 g/dl (3.4-5.0); CALCIUM 8.9 mg/dL (8.5-10.1)
[2020-09-10 13:14] LABS: BLOOD UREA NITROGEN 6.8 mg/dL (7-18)
[2020-09-10 13:15] LABS: MAGNESIUM 1.6 mg/dL (1.8-2.4)
[2020-09-10 13:17] LABS: CREATININE 0.6 mg/dL (0.55-1.3); PHOSPHOROUS 3.3 mg/dL (2.5-4.9)
[2020-09-10 13:18] LABS: BILIRUBIN,TOTAL 0.7 mg/dL (0.2-1); TOT PROT 6.7 g/dl (6.4-8.2)
[2020-09-10] MEDS ORDERED: MAGNESIUM SULF 50% (8.12 MEQ/2 ML-1 GM VIAL) IVPB ONE (14:30)
[2020-09-10] MEDS ORDERED: ALBUTEROL SO4 HFA INHALER IH PRN (14:54)
[2020-09-10] MEDS ORDERED: MORPHINE SULFATE 2 MG/ML VIAL IVPUSH ONE (15:12)
[2020-09-10] MEDS: PATIENT'S OWN MEDICATION (NON-FORMULARY) (Salmeterol Xinafoate [Serevent Diskus] 50 MCG) IH SCH (21:16)
[2020-09-11] MEDS: INSULIN SLIDING SCALE (NOVOLOG) 1 VIAL SQ SCH ×4 (06:02→22:08)
[2020-09-11] MEDS: LACTATED RINGERS SOLUTION 1,000 ML/1,000 ML INFUS.BAG IV SCH ×3 (06:06→16:56)
[2020-09-11 07:46] LABS: BASO % 0.3 % (0-2.0); EOS % 1.1 % (0-4.5); HEMATOCRIT 34.8 % (32.4-45.2); HEMOGLOBIN 11.2 GM/dL (10.7-15.3); LYMPH % 14.6 % (8-40); MCHC 32.1 g/dl (32.0-36.0); MEAN CELL VOLUME 74.8 fl (80-96); MEAN PLT VOLUME 8.3 fl (7.5-11.1); MONO % 9.9 % (3.8-10.2); NEUT % 74.1 % (42.8-82.8); PLATELET COUNT 213 K/MM3 (134-434); RBC 4.65 M/mm3 (3.60-5.2); RDW 17.7 % (11.6-15.6); WHITE BLOOD COUNT 8.7 K/mm3 (4.0-10.0)
[2020-09-11 08:04] LABS: CALCIUM 8.3 mg/dL (8.5-10.1)
[2020-09-11 08:05] LABS: ALBUMIN 3.1 g/dl (3.4-5.0); BLOOD UREA NITROGEN 9.5 mg/dL (7-18); MAGNESIUM 1.9 mg/dL (1.8-2.4)
[2020-09-11 08:08] LABS: CREATININE 0.5 mg/dL (0.55-1.3); PHOSPHOROUS 3.3 mg/dL (2.5-4.9)
[2020-09-11 08:09] LABS: BILIRUBIN,TOTAL 0.8 mg/dL (0.2-1); TOT PROT 5.8 g/dl (6.4-8.2)
[2020-09-11] MEDS: PATIENT'S OWN MEDICATION (NON-FORMULARY) (Salmeterol Xinafoate [Serevent Diskus] 50 MCG) IH SCH ×3 (10:00→22:14)
[2020-09-11] MEDS: ENOXAPARIN NA (PORCINE) 40 MG/0.4 ML DISP.SYRIN SQ SCH (10:14)
[2020-09-11] MEDS: ACETAMINOPHEN 1000 MG/100 ML VIAL (NON FORMULARY) IVPB PRN ×3 (10:15→23:44)
[2020-09-11] MEDS: PANTOPRAZOLE SODIUM 40 MG VIAL IVPUSH SCH (10:15)
[2020-09-12] MEDS: LACTATED RINGERS SOLUTION 1,000 ML/1,000 ML INFUS.BAG IV SCH ×2 (02:06→09:09)
[2020-09-12] MEDS ORDERED: DEXTROSE 50%-WATER - 25 GM/50 ML VIAL IVPUSH ONE ×2 (02:10→17:06)
[2020-09-12] MEDS ORDERED: DEXTROSE 50%-WATER 25 GM/50 ML DISP.SYRIN ONE (02:59)
[2020-09-12] MEDS: INSULIN SLIDING SCALE (NOVOLOG) 1 VIAL SQ SCH ×3 (06:07→17:02)
[2020-09-12] MEDS: ACETAMINOPHEN 1000 MG/100 ML VIAL (NON FORMULARY) IVPB PRN ×3 (08:57→21:26)
[2020-09-12] MEDS: ENOXAPARIN NA (PORCINE) 40 MG/0.4 ML DISP.SYRIN SQ SCH (09:02)
[2020-09-12] MEDS: PANTOPRAZOLE SODIUM 40 MG VIAL IVPUSH SCH (09:07)
[2020-09-12] MEDS: PATIENT'S OWN MEDICATION (NON-FORMULARY) (Salmeterol Xinafoate [Serevent Diskus] 50 MCG) IH SCH ×2 (09:07→21:02)
[2020-09-12] MEDS: DEXTROSE 5%-NORMAL SALINE 1,000 ML IV SCH (15:21)
[2020-09-12] MEDS ORDERED: DEXTROSE 50%-WATER - 25 GM/50 ML VIAL ONE (17:14)
[2020-09-13] MEDS: ACETAMINOPHEN 1000 MG/100 ML VIAL (NON FORMULARY) IVPB PRN ×2 (04:01→10:58)
[2020-09-13 07:55] LABS: BASO % 0.2 % (0-2.0); EOS % 2.1 % (0-4.5); HEMATOCRIT 32.4 % (32.4-45.2); HEMOGLOBIN 10.5 GM/dL (10.7-15.3); LYMPH % 14.4 % (8-40); MCH 24.2 pg (25.7-33.7); MCHC 32.6 g/dl (32.0-36.0); MEAN CELL VOLUME 74.2 fl (80-96); MEAN PLT VOLUME 7.9 fl (7.5-11.1); MONO % 6.1 % (3.8-10.2); NEUT % 77.2 % (42.8-82.8); PLATELET COUNT 225 K/MM3 (134-434); RBC 4.36 M/mm3 (3.60-5.2); RDW 17.6 % (11.6-15.6); WHITE BLOOD COUNT 9.1 K/mm3 (4.0-10.0)
[2020-09-13 08:09] LABS: ALBUMIN 3.2 g/dl (3.4-5.0); BLOOD UREA NITROGEN 6.3 mg/dL (7-18)
[2020-09-13 08:12] LABS: CREATININE 0.5 mg/dL (0.55-1.3)
[2020-09-13 08:13] LABS: BILIRUBIN,TOTAL 0.7 mg/dL (0.2-1)
[2020-09-13 08:14] LABS: TOT PROT 5.8 g/dl (6.4-8.2)
[2020-09-13] MEDS: ONDANSETRON 4 MG/2 ML VIAL IVPUSH PRN (09:12)
[2020-09-13] MEDS: PANTOPRAZOLE SODIUM 40 MG VIAL IVPUSH SCH (09:12)
[2020-09-13] MEDS: PATIENT'S OWN MEDICATION (NON-FORMULARY) (Salmeterol Xinafoate [Serevent Diskus] 50 MCG) IH SCH ×2 (09:12→22:01)
[2020-09-13] MEDS: ENOXAPARIN NA (PORCINE) 40 MG/0.4 ML DISP.SYRIN SQ SCH (09:12)
[2020-09-13] MEDS ORDERED: POTASSIUM CHLORIDE TABS 20 MEQ TABLET.ER (FP) PO ONE (14:32)
[2020-09-13] MEDS ORDERED: ACETAMINOPHEN 325 MG TABLET (FP) PO PRN (14:33)
[2020-09-13] MEDS: DEXTROSE 5%-NORMAL SALINE 1,000 ML IV SCH (14:45)
[2020-09-13] MEDS ORDERED: diphenhydrAMINE HCL 25 MG CAPSULE (FP) PO ONE (20:16)
[2020-09-13] MEDS ORDERED: ACETAMINOPHEN 1000 MG/100 ML VIAL (NON FORMULARY) IVPB ONE (22:39)
[2020-09-14] MEDS: ONDANSETRON 4 MG/2 ML VIAL IVPUSH PRN ×2 (05:38→14:58)
[2020-09-14] MEDS: ENOXAPARIN NA (PORCINE) 40 MG/0.4 ML DISP.SYRIN SQ SCH (10:04)
[2020-09-14] MEDS: PATIENT'S OWN MEDICATION (NON-FORMULARY) (Salmeterol Xinafoate [Serevent Diskus] 50 MCG) IH SCH ×2 (10:04→22:17)
[2020-09-14] MEDS: PANTOPRAZOLE SODIUM 40 MG VIAL IVPUSH SCH (10:04)
[2020-09-14] MEDS ORDERED: MAG HYDROX/AL HYDROX/SIMETH 30 ML UNIT-DOSE CUP PO ONE (13:05)
[2020-09-14] MEDS ORDERED: FAMOTIDINE 20 MG/50 ML IVPB 20 MG/50 ML MG IVPB ONE (14:03)
[2020-09-14] MEDS ORDERED: ACETAMINOPHEN 1000 MG/100 ML VIAL (NON FORMULARY) IVPB ONE ×2 (14:03→22:24)
[2020-09-14] MEDS: DEXTROSE 5%-NORMAL SALINE 1,000 ML IV SCH (14:48)
[2020-09-14] MEDS ORDERED: morphine SULFATE 4 MG/ML VIAL IVPUSH PRN (18:36)
[2020-09-14] MEDS ORDERED: BENZOCAINE/MENTH/CETYLPYRD CL 1 EACH LOZENGE MM PRN (21:03)
[2020-09-15] MEDS: DEXTROSE 5%-NORMAL SALINE 1,000 ML IV SCH ×3 (03:59→22:28)
[2020-09-15] MEDS ORDERED: ACETAMINOPHEN 1000 MG/100 ML VIAL (NON FORMULARY) IVPB ONE (06:01)
[2020-09-15] MEDS: PATIENT'S OWN MEDICATION (NON-FORMULARY) (Salmeterol Xinafoate [Serevent Diskus] 50 MCG) IH SCH ×2 (11:04→22:12)
[2020-09-15] MEDS: ENOXAPARIN NA (PORCINE) 40 MG/0.4 ML DISP.SYRIN SQ SCH (12:18)
[2020-09-15] MEDS: PANTOPRAZOLE SODIUM 40 MG VIAL IVPUSH SCH (12:18)
[2020-09-15] MEDS: ACETAMINOPHEN 1000 MG/100 ML VIAL (NON FORMULARY) IVPB PRN ×2 (15:59→22:28)
[2020-09-15 18:28] LABS: BASO % 0.1 % (0-2.0); HEMATOCRIT 37.9 % (32.4-45.2); HEMOGLOBIN 11.9 GM/dL (10.7-15.3); LYMPH % 8.5 % (8-40); MCH 23.7 pg (25.7-33.7); MCHC 31.4 g/dl (32.0-36.0); MEAN CELL VOLUME 75.4 fl (80-96); MEAN PLT VOLUME 8.2 fl (7.5-11.1); MONO % 7.6 % (3.8-10.2); NEUT % 83.8 % (42.8-82.8); PLATELET COUNT 319 K/MM3 (134-434); RBC 5.02 M/mm3 (3.60-5.2); RDW 18.3 % (11.6-15.6); WHITE BLOOD COUNT 17.2 K/mm3 (4.0-10.0)
[2020-09-15 18:49] LABS: CALCIUM 9.2 mg/dL (8.5-10.1)
[2020-09-15 18:50] LABS: BLOOD UREA NITROGEN 7.9 mg/dL (7-18); MAGNESIUM 1.8 mg/dL (1.8-2.4)
[2020-09-15 18:53] LABS: CREATININE 0.6 mg/dL (0.55-1.3)
[2020-09-16] MEDS: ACETAMINOPHEN 1000 MG/100 ML VIAL (NON FORMULARY) IVPB PRN ×3 (04:52→19:50)
[2020-09-16 07:54] LABS: HEMOGLOBIN 10.3 GM/dL (10.7-15.3); MCHC 32.1 g/dl (32.0-36.0); MEAN CELL VOLUME 74.8 fl (80-96); MEAN PLT VOLUME 7.8 fl (7.5-11.1); PLATELET COUNT 265 K/MM3 (134-434); RBC 4.28 M/mm3 (3.60-5.2); RDW 17.9 % (11.6-15.6); WHITE BLOOD COUNT 12.9 K/mm3 (4.0-10.0)
[2020-09-16 08:09] LABS: ALBUMIN 2.9 g/dl (3.4-5.0); BLOOD UREA NITROGEN 9.7 mg/dL (7-18); CALCIUM 8.1 mg/dL (8.5-10.1)
[2020-09-16 08:10] LABS: MAGNESIUM 1.7 mg/dL (1.8-2.4)
[2020-09-16 08:12] LABS: CREATININE 0.6 mg/dL (0.55-1.3)
[2020-09-16 08:13] LABS: BILIRUBIN,TOTAL 0.6 mg/dL (0.2-1); PHOSPHOROUS 2.9 mg/dL (2.5-4.9); TOT PROT 5.6 g/dl (6.4-8.2)
[2020-09-16] MEDS: ENOXAPARIN NA (PORCINE) 40 MG/0.4 ML DISP.SYRIN SQ SCH (11:22)
[2020-09-16] MEDS: PANTOPRAZOLE SODIUM 40 MG VIAL IVPUSH SCH (11:23)
[2020-09-16] MEDS: PATIENT'S OWN MEDICATION (NON-FORMULARY) (Salmeterol Xinafoate [Serevent Diskus] 50 MCG) IH SCH ×2 (11:41→21:02)
[2020-09-16] MEDS ORDERED: MAGNESIUM SULF 50% (8.12 MEQ/2 ML-1 GM VIAL) IVPB ONE (12:45)
[2020-09-16] MEDS ORDERED: DEXTROSE 5%-NORMAL SALINE 990 ML with POTASSIUM CHLORIDE 20 MEQ IV SCH (12:46)
[2020-09-16] MEDS ORDERED: AMINO ACIDS 4.25%/D5W 1,000 ML IV SCH (15:00)
[2020-09-16] MEDS: POTASSIUM CHLORIDE 20 MEQ in AMINO ACIDS 4.25%/D5W 1,000 ML IV SCH (17:17)
[2020-09-17] MEDS: ONDANSETRON 4 MG/2 ML VIAL IVPUSH PRN (06:41)
[2020-09-17] MEDS: ACETAMINOPHEN 1000 MG/100 ML VIAL (NON FORMULARY) IVPB PRN ×3 (06:50→21:21)
[2020-09-17 07:22] LABS: HEMATOCRIT 34.7 % (32.4-45.2); HEMOGLOBIN 10.9 GM/dL (10.7-15.3); MCH 23.8 pg (25.7-33.7); MCHC 31.4 g/dl (32.0-36.0); MEAN CELL VOLUME 75.8 fl (80-96); MEAN PLT VOLUME 7.3 fl (7.5-11.1); PLATELET COUNT 279 K/MM3 (134-434); RBC 4.58 M/mm3 (3.60-5.2); RDW 18.1 % (11.6-15.6); WHITE BLOOD COUNT 13.5 K/mm3 (4.0-10.0)
[2020-09-17 07:48] LABS: CALCIUM 8.5 mg/dL (8.5-10.1)
[2020-09-17 07:49] LABS: ALBUMIN 3.2 g/dl (3.4-5.0); BLOOD UREA NITROGEN 11.5 mg/dL (7-18)
[2020-09-17 07:52] LABS: CREATININE 0.5 mg/dL (0.55-1.3); MAGNESIUM 1.9 mg/dL (1.8-2.4); PHOSPHOROUS 2.3 mg/dL (2.5-4.9)
[2020-09-17 07:53] LABS: BILIRUBIN,TOTAL 0.6 mg/dL (0.2-1)
[2020-09-17] MEDS: PANTOPRAZOLE SODIUM 40 MG VIAL IVPUSH SCH (09:21)
[2020-09-17] MEDS: PATIENT'S OWN MEDICATION (NON-FORMULARY) (Salmeterol Xinafoate [Serevent Diskus] 50 MCG) IH SCH ×2 (09:23→21:21)
[2020-09-17] MEDS: ENOXAPARIN NA (PORCINE) 40 MG/0.4 ML DISP.SYRIN SQ SCH (09:23)
[2020-09-17] MEDS ORDERED: POTASSIUM PHOSPHATE 30 MM in SODIUM CHLORIDE 500 ML IVPB ONE (14:30)
[2020-09-17] MEDS: POTASSIUM CHLORIDE 20 MEQ in AMINO ACIDS 4.25%/D5W 1,000 ML IV SCH ×2 (16:58→20:56)
[2020-09-17] MEDS ORDERED: ACETAMINOPHEN 1000 MG/100 ML VIAL (NON FORMULARY) IVPB ONE (21:10)
[2020-09-18] MEDS ORDERED: DEXTROSE 50%-WATER - 25 GM/50 ML VIAL IVPUSH PRN (00:25)
[2020-09-18] MEDS: INSULIN SLIDING SCALE (NOVOLOG) 1 VIAL SQ SCH ×4 (00:35→17:15)
[2020-09-18 08:04] LABS: BASO % 0.3 % (0-2.0); EOS % 2.7 % (0-4.5); HEMATOCRIT 36.2 % (32.4-45.2); HEMOGLOBIN 11.3 GM/dL (10.7-15.3); MCH 23.7 pg (25.7-33.7); MCHC 31.1 g/dl (32.0-36.0); MEAN CELL VOLUME 76.2 fl (80-96); MEAN PLT VOLUME 7.7 fl (7.5-11.1); MONO % 7.5 % (3.8-10.2); NEUT % 75.5 % (42.8-82.8); PLATELET COUNT 327 K/MM3 (134-434); RBC 4.75 M/mm3 (3.60-5.2); RDW 18.7 % (11.6-15.6); WHITE BLOOD COUNT 14.2 K/mm3 (4.0-10.0)
[2020-09-18 08:14] LABS: CALCIUM 8.6 mg/dL (8.5-10.1)
[2020-09-18 08:15] LABS: BLOOD UREA NITROGEN 12.7 mg/dL (7-18); MAGNESIUM 1.8 mg/dL (1.8-2.4)
[2020-09-18 08:18] LABS: CREATININE 0.5 mg/dL (0.55-1.3); PHOSPHOROUS 3.1 mg/dL (2.5-4.9)
[2020-09-18] MEDS: PANTOPRAZOLE SODIUM 40 MG VIAL IVPUSH SCH (09:35)
[2020-09-18] MEDS: ENOXAPARIN NA (PORCINE) 40 MG/0.4 ML DISP.SYRIN SQ SCH (09:35)
[2020-09-18] MEDS: PATIENT'S OWN MEDICATION (NON-FORMULARY) (Salmeterol Xinafoate [Serevent Diskus] 50 MCG) IH SCH ×2 (09:35→22:19)
[2020-09-18] MEDS: ACETAMINOPHEN 1000 MG/100 ML VIAL (NON FORMULARY) IVPB PRN (09:39)
[2020-09-18] MEDS: POTASSIUM CHLORIDE 20 MEQ in AMINO ACIDS 4.25%/D5W 1,000 ML IV SCH (12:33)
[2020-09-18] MEDS: ONDANSETRON 4 MG/2 ML VIAL IVPUSH PRN (21:31)
[2020-09-18] MEDS ORDERED: ACETAMINOPHEN 1000 MG/100 ML VIAL (NON FORMULARY) IVPB ONE (21:54)
[2020-09-19] MEDS: INSULIN SLIDING SCALE (NOVOLOG) 1 VIAL SQ SCH ×4 (01:34→17:07)
[2020-09-19] MEDS: POTASSIUM CHLORIDE 20 MEQ in AMINO ACIDS 4.25%/D5W 1,000 ML IV SCH ×2 (04:17→11:19)
[2020-09-19] MEDS ORDERED: ACETAMINOPHEN 1000 MG/100 ML VIAL (NON FORMULARY) IVPB ONE (04:45)
[2020-09-19 08:07] LABS: BILIRUBIN,TOTAL 0.5 mg/dL (0.2-1)
[2020-09-19 08:08] LABS: CREATININE 0.5 mg/dL (0.55-1.3)
[2020-09-19 08:09] LABS: BASO % 0.3 % (0-2.0); EOS % 1.7 % (0-4.5); HEMATOCRIT 34.2 % (32.4-45.2); LYMPH % 8.9 % (8-40); MCHC 32.2 g/dl (32.0-36.0); MEAN CELL VOLUME 74.6 fl (80-96); MEAN PLT VOLUME 7.3 fl (7.5-11.1); MONO % 7.4 % (3.8-10.2); NEUT % 81.7 % (42.8-82.8); PLATELET COUNT 301 K/MM3 (134-434); RBC 4.59 M/mm3 (3.60-5.2); RDW 18.1 % (11.6-15.6); WHITE BLOOD COUNT 15.4 K/mm3 (4.0-10.0)
[2020-09-19] MEDS: ENOXAPARIN NA (PORCINE) 40 MG/0.4 ML DISP.SYRIN SQ SCH (11:02)
[2020-09-19] MEDS: PATIENT'S OWN MEDICATION (NON-FORMULARY) (Salmeterol Xinafoate [Serevent Diskus] 50 MCG) IH SCH ×2 (11:03→21:23)
[2020-09-19] MEDS: PANTOPRAZOLE SODIUM 40 MG VIAL IVPUSH SCH (11:12)
[2020-09-19] MEDS: ACETAMINOPHEN 1000 MG/100 ML VIAL (NON FORMULARY) IVPB PRN ×2 (11:55→21:24)
[2020-09-20] MEDS: POTASSIUM CHLORIDE 20 MEQ in AMINO ACIDS 4.25%/D5W 1,000 ML IV SCH ×4 (00:13→21:36)
[2020-09-20] MEDS: INSULIN SLIDING SCALE (NOVOLOG) 1 VIAL SQ SCH ×4 (00:15→17:38)
[2020-09-20] MEDS: ACETAMINOPHEN 1000 MG/100 ML VIAL (NON FORMULARY) IVPB PRN ×2 (06:21→17:26)
[2020-09-20 08:00] LABS: BASO % 0.3 % (0-2.0); HEMATOCRIT 32.3 % (32.4-45.2); HEMOGLOBIN 10.6 GM/dL (10.7-15.3); LYMPH % 14.3 % (8-40); MCH 24.3 pg (25.7-33.7); MCHC 32.6 g/dl (32.0-36.0); MEAN CELL VOLUME 74.4 fl (80-96); MEAN PLT VOLUME 7.4 fl (7.5-11.1); MONO % 8.2 % (3.8-10.2); NEUT % 75.2 % (42.8-82.8); PLATELET COUNT 288 K/MM3 (134-434); RBC 4.35 M/mm3 (3.60-5.2); RDW 18.2 % (11.6-15.6)
[2020-09-20 08:25] LABS: BLOOD UREA NITROGEN 12.5 mg/dL (7-18)
[2020-09-20 08:28] LABS: CREATININE 0.5 mg/dL (0.55-1.3)
[2020-09-20 08:30] LABS: BILIRUBIN,TOTAL 0.5 mg/dL (0.2-1)
[2020-09-20] MEDS: ENOXAPARIN NA (PORCINE) 40 MG/0.4 ML DISP.SYRIN SQ SCH (09:09)
[2020-09-20] MEDS: PATIENT'S OWN MEDICATION (NON-FORMULARY) (Salmeterol Xinafoate [Serevent Diskus] 50 MCG) IH SCH ×2 (09:09→21:21)
[2020-09-20] MEDS: PANTOPRAZOLE SODIUM 40 MG VIAL IVPUSH SCH (09:09)
[2020-09-20] MEDS ORDERED: POTASSIUM CHLORIDE 20 MEQ in AMINO ACIDS 4.25%/D5W 1,000 ML IV SCH (21:30)
[2020-09-21] MEDS: INSULIN SLIDING SCALE (NOVOLOG) 1 VIAL SQ SCH ×4 (00:18→17:06)
[2020-09-21] MEDS: ACETAMINOPHEN 1000 MG/100 ML VIAL (NON FORMULARY) IVPB PRN ×4 (00:22→22:55)
[2020-09-21 08:03] LABS: BASO % 0.4 % (0-2.0); EOS % 2.1 % (0-4.5); HEMATOCRIT 33.3 % (32.4-45.2); HEMOGLOBIN 10.6 GM/dL (10.7-15.3); LYMPH % 10.6 % (8-40); MCHC 31.8 g/dl (32.0-36.0); MEAN CELL VOLUME 75.3 fl (80-96); MEAN PLT VOLUME 7.5 fl (7.5-11.1); MONO % 6.7 % (3.8-10.2); NEUT % 80.2 % (42.8-82.8); PLATELET COUNT 276 K/MM3 (134-434); RBC 4.42 M/mm3 (3.60-5.2); RDW 18.5 % (11.6-15.6)
[2020-09-21 08:20] LABS: CALCIUM 7.6 mg/dL (8.5-10.1)
[2020-09-21 08:21] LABS: ALBUMIN 2.7 g/dl (3.4-5.0); BLOOD UREA NITROGEN 10.3 mg/dL (7-18)
[2020-09-21 08:24] LABS: CREATININE 0.5 mg/dL (0.55-1.3)
[2020-09-21 08:25] LABS: BILIRUBIN,TOTAL 0.4 mg/dL (0.2-1)
[2020-09-21 08:26] LABS: TOT PROT 5.5 g/dl (6.4-8.2)
[2020-09-21] MEDS: ENOXAPARIN NA (PORCINE) 40 MG/0.4 ML DISP.SYRIN SQ SCH (09:44)
[2020-09-21] MEDS: PANTOPRAZOLE SODIUM 40 MG VIAL IVPUSH SCH (09:44)
[2020-09-21] MEDS: PATIENT'S OWN MEDICATION (NON-FORMULARY) (Salmeterol Xinafoate [Serevent Diskus] 50 MCG) IH SCH ×2 (09:45→21:03)
[2020-09-21] MEDS: POTASSIUM CHLORIDE 20 MEQ in AMINO ACIDS 4.25%/D5W 1,000 ML IV SCH ×2 (16:08→21:03)
[2020-09-22] MEDS: INSULIN SLIDING SCALE (NOVOLOG) 1 VIAL SQ SCH ×5 (00:05→23:28)
[2020-09-22] MEDS: POTASSIUM CHLORIDE 20 MEQ in AMINO ACIDS 4.25%/D5W 1,000 ML IV SCH ×2 (04:13→11:14)
[2020-09-22 07:32] LABS: BASO % 0.2 % (0-2.0); EOS % 3.4 % (0-4.5); HEMATOCRIT 37.8 % (32.4-45.2); HEMOGLOBIN 12.1 GM/dL (10.7-15.3); LYMPH % 13.3 % (8-40); MCH 23.9 pg (25.7-33.7); MEAN CELL VOLUME 74.6 fl (80-96); MEAN PLT VOLUME 7.6 fl (7.5-11.1); NEUT % 76.1 % (42.8-82.8); PLATELET COUNT 415 K/MM3 (134-434); RBC 5.06 M/mm3 (3.60-5.2); RDW 18.6 % (11.6-15.6); WHITE BLOOD COUNT 15.6 K/mm3 (4.0-10.0)
[2020-09-22 07:51] LABS: BLOOD UREA NITROGEN 10.3 mg/dL (7-18)
[2020-09-22 07:54] LABS: CREATININE 0.5 mg/dL (0.55-1.3)
[2020-09-22 07:56] LABS: BILIRUBIN,TOTAL 0.6 mg/dL (0.2-1); TOT PROT 7.2 g/dl (6.4-8.2)
[2020-09-22 08:00] LABS: ALBUMIN 3.6 g/dl (3.4-5.0); CALCIUM 9.4 mg/dL (8.5-10.1)
[2020-09-22] MEDS ORDERED: PT OWN MED DRAWER 7, Y5N ONE (11:04)
[2020-09-22] MEDS: PANTOPRAZOLE SODIUM 40 MG VIAL IVPUSH SCH (11:14)
[2020-09-22] MEDS: PATIENT'S OWN MEDICATION (NON-FORMULARY) (Salmeterol Xinafoate [Serevent Diskus] 50 MCG) IH SCH ×2 (11:15→21:08)
[2020-09-22] MEDS: ACETAMINOPHEN 1000 MG/100 ML VIAL (NON FORMULARY) IVPB PRN (11:46)
[2020-09-22] MEDS ORDERED: ONDANSETRON 4 MG/2 ML VIAL IVPUSH PRN ×3 (14:40→19:06)
[2020-09-22] MEDS ORDERED: PROMETHAZINE HCL 25 MG/1 ML VIAL IVPUSH PRN ×2 (14:40→19:06)
[2020-09-22] MEDS ORDERED: LACTATED RINGERS SOLUTION 1,000 ML IV SCH ×2 (14:45→19:06)
[2020-09-22] MEDS ORDERED: MIDAZOLAM HCL 2 MG/2 ML SINGLE DOSE VIAL ONE (15:06)
[2020-09-22] MEDS ORDERED: SUCCINYLCHOLINE CHLORIDE 200 MG/10 ML SYRINGE ONE (15:06)
[2020-09-22] MEDS ORDERED: PROPOFOL 20 ML ONE ×2 (15:06)
[2020-09-22] MEDS ORDERED: ROCURONIUM BROMIDE 50 MG/5 ML SYRINGE ONE ×2 (15:06→16:54)
[2020-09-22] MEDS ORDERED: fentaNYL CITRATE 250 MCG/5 ML VIAL ONE (15:06)
[2020-09-22] MEDS ORDERED: EPHEDRINE SULFATE/0.9% NACL/PF 50 MG/10 ML SYRINGE NR ONE (16:06)
[2020-09-22] MEDS ORDERED: NEOSTIGMINE METHYLSULFATE 0.5 MG/ML - 10 ML MDV ONE (17:01)
[2020-09-22] MEDS ORDERED: HYDROmorphone *PCA* 10MG/50ML DISP.SYRIN ONE (17:43)
[2020-09-22] MEDS ORDERED: HYDROmorphone *PCA* 10MG/50ML DISP.SYRIN PCA ONE (17:45)
[2020-09-22] MEDS ORDERED: LABETALOL HCL 5 MG/1 ML (100MG/20 ML VIAL) ONE (18:34)
[2020-09-22] MEDS ORDERED: LABETALOL HCL 5 MG/1 ML (100MG/20 ML VIAL) IVPUSH PRN (18:50)
[2020-09-22] MEDS ORDERED: DEXTROSE 50%-WATER - 25 GM/50 ML VIAL IVPUSH PRN (19:06)
[2020-09-22] MEDS ORDERED: ACETAMINOPHEN 1000 MG/100 ML VIAL (NON FORMULARY) IVPB PRN (19:06)
[2020-09-22] MEDS ORDERED: ALBUTEROL SO4 HFA INHALER IH PRN (19:06)
[2020-09-22] MEDS ORDERED: LABETALOL HCL 5 MG/1 ML (100MG/20 ML VIAL) IVPUSH ONE (19:45)
[2020-09-22] MEDS ORDERED: ACETAMINOPHEN 1000 MG/100 ML VIAL (NON FORMULARY) IVPB ONE (20:10)
[2020-09-22] MEDS ORDERED: ACETAMINOPHEN INJECTION 100 ML IVPB ONE (20:24)
[2020-09-22] MEDS: SODIUM CHLORIDE 1,000 ML IV SCH (20:43)
[2020-09-22] MEDS: HYDROmorphone *PCA* 10MG/50ML DISP.SYRIN PCA SCH (21:09)
[2020-09-23] MEDS ORDERED: LABETALOL HCL 5 MG/1 ML (100MG/20 ML VIAL) IVPB PRN (02:22)
[2020-09-23] MEDS: INSULIN SLIDING SCALE (NOVOLOG) 1 VIAL SQ SCH ×4 (05:44→23:59)
[2020-09-23] MEDS: PANTOPRAZOLE SODIUM 40 MG VIAL IVPUSH SCH (10:00)
[2020-09-23] MEDS: ENOXAPARIN NA (PORCINE) 40 MG/0.4 ML DISP.SYRIN SQ SCH (10:00)
[2020-09-23] MEDS: PATIENT'S OWN MEDICATION (NON-FORMULARY) (Salmeterol Xinafoate [Serevent Diskus] 50 MCG) IH SCH ×2 (10:01→21:34)
[2020-09-23 10:30] LABS: BASO % 0.1 % (0-2.0); EOS % 0.1 % (0-4.5); HEMATOCRIT 36.1 % (32.4-45.2); HEMOGLOBIN 11.6 GM/dL (10.7-15.3); LYMPH % 6.3 % (8-40); MCH 23.9 pg (25.7-33.7); MCHC 32.1 g/dl (32.0-36.0); MEAN CELL VOLUME 74.5 fl (80-96); MEAN PLT VOLUME 7.3 fl (7.5-11.1); MONO % 8.5 % (3.8-10.2); PLATELET COUNT 360 K/MM3 (134-434); RBC 4.84 M/mm3 (3.60-5.2); RDW 18.7 % (11.6-15.6); WHITE BLOOD COUNT 21.3 K/mm3 (4.0-10.0)
[2020-09-23 11:00] LABS: BLOOD UREA NITROGEN 16.9 mg/dL (7-18)
[2020-09-23 11:03] LABS: CREATININE 0.6 mg/dL (0.55-1.3)
[2020-09-23 11:04] LABS: BILIRUBIN,TOTAL 0.6 mg/dL (0.2-1); TOT PROT 6.4 g/dl (6.4-8.2)
[2020-09-23 13:19] LABS: ANISOCYTOSIS 1+; MACROCYTOSIS 0; PLATELET ESTIMATE NORMAL
[2020-09-23] MEDS ORDERED: PCA PUMP NR ONE (15:47)
[2020-09-23] MEDS: HYDROmorphone *PCA* 10MG/50ML DISP.SYRIN PCA SCH ×2 (15:51→17:04)
[2020-09-23] MEDS: SODIUM CHLORIDE 1,000 ML IV SCH (19:30)
[2020-09-23 21:55] LABS: EPI CELLS 10 /uL (0-25.1); HYALINE CASTS 2 /uL (0-3.1); URINE APPEARANCE CLEAR; URINE BACTERIA 374 /uL (0-1359); URINE BILIRUBIN NEGATIVE (NEGATIVE); URINE COLOR YELLOW; URINE GLUCOSE (UA) NEGATIVE (NEGATIVE); URINE KETONE 3+ (NEGATIVE); URINE LEUK ESTERASE NEGATIVE (NEGATIVE); URINE NITRITE NEGATIVE (NEGATIVE); URINE PROTEIN 1+ (NEGATIVE); URINE RBC 14 /uL (0-23.9); URINE UROBILINOGEN 0.2 mg/dL (0.2-1.0); URINE WBC 11 /uL (0-25.8)
[2020-09-24] MEDS: INSULIN SLIDING SCALE (NOVOLOG) 1 VIAL SQ SCH ×3 (05:34→17:05)
[2020-09-24] MEDS: SODIUM CHLORIDE 1,000 ML IV SCH ×2 (06:15→22:36)
[2020-09-24 07:20] LABS: MAGNESIUM 1.6 mg/dL (1.8-2.4)
[2020-09-24 07:24] LABS: PHOSPHOROUS 2.5 mg/dL (2.5-4.9)
[2020-09-24] MEDS ORDERED: MAGNESIUM 1GM/D5W 100ML - 100 ML IVPB IVPB ONE (08:45)
[2020-09-24 08:56] LABS: CALCIUM 8.7 mg/dL (8.5-10.1)
[2020-09-24 08:57] LABS: ALBUMIN 2.7 g/dl (3.4-5.0); BLOOD UREA NITROGEN 11.3 mg/dL (7-18)
[2020-09-24 09:00] LABS: CREATININE 0.4 mg/dL (0.55-1.3)
[2020-09-24 09:02] LABS: TOT PROT 5.8 g/dl (6.4-8.2)
[2020-09-24 09:03] LABS: BILIRUBIN,TOTAL 0.8 mg/dL (0.2-1)
[2020-09-24 09:33] LABS: HEMATOCRIT 32.3 % (32.4-45.2); MCH 23.5 pg (25.7-33.7); MCHC 30.9 g/dl (32.0-36.0); MEAN CELL VOLUME 75.9 fl (80-96); MEAN PLT VOLUME 8.2 fl (7.5-11.1); PLATELET COUNT 313 K/MM3 (134-434); RBC 4.25 M/mm3 (3.60-5.2); RDW 19.1 % (11.6-15.6); WHITE BLOOD COUNT 13.5 K/mm3 (4.0-10.0)
[2020-09-24] MEDS: ENOXAPARIN NA (PORCINE) 40 MG/0.4 ML DISP.SYRIN SQ SCH (09:37)
[2020-09-24] MEDS: PANTOPRAZOLE SODIUM 40 MG VIAL IVPUSH SCH (09:38)
[2020-09-24] MEDS: PATIENT'S OWN MEDICATION (NON-FORMULARY) (Salmeterol Xinafoate [Serevent Diskus] 50 MCG) IH SCH ×2 (09:39→21:25)
[2020-09-24] MEDS: HYDROmorphone *PCA* 10MG/50ML DISP.SYRIN PCA SCH (18:40)
[2020-09-24 19:27] VITALS: BMI 38.4
[2020-09-25] MEDS: INSULIN SLIDING SCALE (NOVOLOG) 1 VIAL SQ SCH ×4 (01:43→17:25)
[2020-09-25] MEDS: SODIUM CHLORIDE 1,000 ML IV SCH ×2 (06:20→22:06)
[2020-09-25 07:15] LABS: HEMATOCRIT 30.6 % (32.4-45.2); HEMOGLOBIN 9.7 GM/dL (10.7-15.3); MCHC 31.8 g/dl (32.0-36.0); MEAN CELL VOLUME 75.4 fl (80-96); MEAN PLT VOLUME 7.7 fl (7.5-11.1); PLATELET COUNT 294 K/MM3 (134-434); RBC 4.07 M/mm3 (3.60-5.2); RDW 19.4 % (11.6-15.6); WHITE BLOOD COUNT 10.2 K/mm3 (4.0-10.0)
[2020-09-25 07:41] LABS: ALBUMIN 2.4 g/dl (3.4-5.0); CALCIUM 8.3 mg/dL (8.5-10.1)
[2020-09-25 07:42] LABS: MAGNESIUM 1.6 mg/dL (1.8-2.4)
[2020-09-25 07:44] LABS: CREATININE 0.3 mg/dL (0.55-1.3)
[2020-09-25 07:45] LABS: BILIRUBIN,TOTAL 0.9 mg/dL (0.2-1); PHOSPHOROUS 2.6 mg/dL (2.5-4.9); TOT PROT 5.5 g/dl (6.4-8.2)
[2020-09-25] MEDS: PANTOPRAZOLE SODIUM 40 MG VIAL IVPUSH SCH (09:27)
[2020-09-25] MEDS: ENOXAPARIN NA (PORCINE) 40 MG/0.4 ML DISP.SYRIN SQ SCH (09:28)
[2020-09-25] MEDS: PATIENT'S OWN MEDICATION (NON-FORMULARY) (Salmeterol Xinafoate [Serevent Diskus] 50 MCG) IH SCH ×2 (09:34→21:23)
[2020-09-25] MEDS ORDERED: PCA PUMP NR ONE (13:23)
[2020-09-25] MEDS: HYDROmorphone *PCA* 10MG/50ML DISP.SYRIN PCA SCH ×2 (13:49→17:26)
[2020-09-26] MEDS: INSULIN SLIDING SCALE (NOVOLOG) 1 VIAL SQ SCH ×4 (01:32→17:06)
[2020-09-26] MEDS: SODIUM CHLORIDE 1,000 ML IV SCH (05:52)
[2020-09-26] MEDS ORDERED: PT OWN MED DRAWER 7, Y5N ONE (08:49)
[2020-09-26] MEDS: PANTOPRAZOLE SODIUM 40 MG VIAL IVPUSH SCH (09:13)
[2020-09-26] MEDS: ENOXAPARIN NA (PORCINE) 40 MG/0.4 ML DISP.SYRIN SQ SCH (09:13)
[2020-09-26] MEDS: PATIENT'S OWN MEDICATION (NON-FORMULARY) (Salmeterol Xinafoate [Serevent Diskus] 50 MCG) IH SCH ×2 (11:08→22:26)
[2020-09-26] MEDS ORDERED: SODIUM CHLORIDE 1,000 ML IV SCH (11:58)
[2020-09-26] MEDS ORDERED: PCA PUMP NR ONE (12:55)
[2020-09-26] MEDS: AMINO ACIDS 4.25%/D5W 1,000 ML IV SCH (14:49)
[2020-09-26] MEDS: ACETAMINOPHEN 1000 MG/100 ML VIAL (NON FORMULARY) IVPB PRN ×2 (14:49→21:20)
[2020-09-26] MEDS ORDERED: ALBUTEROL SO4 0.083% IH SOL 2.5 MG/3 ML VIAL.NEB. NEB ONE (19:31)
[2020-09-26] MEDS ORDERED: ALBUTEROL SO4 HFA INHALER IH PRN (22:55)
[2020-09-27] MEDS: INSULIN SLIDING SCALE (NOVOLOG) 1 VIAL SQ SCH ×4 (00:36→17:20)
[2020-09-27] MEDS ORDERED: PROAIR RESPICLICK PO PRN (01:25)
[2020-09-27] MEDS: ACETAMINOPHEN 1000 MG/100 ML VIAL (NON FORMULARY) IVPB PRN ×4 (03:27→21:21)
[2020-09-27] MEDS: AMINO ACIDS 4.25%/D5W 1,000 ML IV SCH ×2 (05:32→17:39)
[2020-09-27] MEDS: ENOXAPARIN NA (PORCINE) 40 MG/0.4 ML DISP.SYRIN SQ SCH (09:36)
[2020-09-27] MEDS: PANTOPRAZOLE SODIUM 40 MG VIAL IVPUSH SCH (09:37)
[2020-09-27] MEDS: PATIENT'S OWN MEDICATION (NON-FORMULARY) (Salmeterol Xinafoate [Serevent Diskus] 50 MCG) IH SCH ×2 (09:38→21:22)
[2020-09-27] MEDS ORDERED: cefTRIAXone SODIUM 1 GM VIAL ONE (11:35)
[2020-09-27] MEDS ORDERED: DEXTROSE 5%-WATER - 50 ML IVPB ONE (11:35)
[2020-09-27] MEDS: CEFTRIAXONE 1 GM in DEXTROSE 5%-WATER - 50 ML IVPB SCH (11:37)
[2020-09-27] MEDS ORDERED: MAGNESIUM SULF 50% (8.12 MEQ/2 ML-1 GM VIAL) IVPB ONE (15:33)
[2020-09-27] MEDS: BENZOCAINE/MENTH/CETYLPYRD CL 1 EACH LOZENGE MM PRN (17:20)
[2020-09-28] MEDS: INSULIN SLIDING SCALE (NOVOLOG) 1 VIAL SQ SCH ×4 (00:56→18:39)
[2020-09-28] MEDS: ACETAMINOPHEN 1000 MG/100 ML VIAL (NON FORMULARY) IVPB PRN ×4 (03:34→22:14)
[2020-09-28] MEDS: AMINO ACIDS 4.25%/D5W 1,000 ML IV SCH ×2 (06:04→18:39)
[2020-09-28] MEDS ORDERED: PT OWN MED DRAWER 7, Y5N ONE (06:12)
[2020-09-28 07:40] LABS: BASO % 0.3 % (0-2.0); EOS % 2.1 % (0-4.5); HEMATOCRIT 30.6 % (32.4-45.2); HEMOGLOBIN 9.9 GM/dL (10.7-15.3); LYMPH % 6.6 % (8-40); MCHC 32.4 g/dl (32.0-36.0); MEAN CELL VOLUME 74.1 fl (80-96); MEAN PLT VOLUME 7.7 fl (7.5-11.1); MONO % 8.9 % (3.8-10.2); NEUT % 82.1 % (42.8-82.8); PLATELET COUNT 360 K/MM3 (134-434); RBC 4.14 M/mm3 (3.60-5.2); RDW 18.6 % (11.6-15.6); WHITE BLOOD COUNT 16.1 K/mm3 (4.0-10.0)
[2020-09-28 08:03] LABS: CALCIUM 8.8 mg/dL (8.5-10.1)
[2020-09-28 08:05] LABS: ALBUMIN 2.4 g/dl (3.4-5.0); BLOOD UREA NITROGEN 6.8 mg/dL (7-18)
[2020-09-28 08:07] LABS: CREATININE 0.4 mg/dL (0.55-1.3); TOT PROT 5.6 g/dl (6.4-8.2)
[2020-09-28 08:10] LABS: BILIRUBIN,TOTAL 1.4 mg/dL (0.2-1)
[2020-09-28] MEDS ORDERED: cefTRIAXone SODIUM 1 GM VIAL ONE (09:02)
[2020-09-28] MEDS ORDERED: DEXTROSE 5%-WATER - 50 ML IVPB ONE (09:02)
[2020-09-28] MEDS: KCL 10 MEQ IVPB 10 MEQ/100 ML INFUS.BAG IVPB SCH ×3 (09:23→15:05)
[2020-09-28] MEDS: PANTOPRAZOLE SODIUM 40 MG VIAL IVPUSH SCH (09:24)
[2020-09-28] MEDS: ENOXAPARIN NA (PORCINE) 40 MG/0.4 ML DISP.SYRIN SQ SCH (09:24)
[2020-09-28] MEDS: CEFTRIAXONE 1 GM in DEXTROSE 5%-WATER - 50 ML IVPB SCH (09:24)
[2020-09-28] MEDS: PATIENT'S OWN MEDICATION (NON-FORMULARY) (Salmeterol Xinafoate [Serevent Diskus] 50 MCG) IH SCH ×2 (09:31→21:30)
[2020-09-28] MEDS: BENZOCAINE/MENTH/CETYLPYRD CL 1 EACH LOZENGE MM PRN (13:57)
[2020-09-28] MEDS ORDERED: ACETAMINOPHEN 500 MG TABLET (FP) PO PRN (16:05)
[2020-09-28] MEDS ORDERED: ALBUTEROL SO4 2.5/IPRATROPIUM 0.5 INH SOL 3 ML VIAL.NEB. NEB PRN (17:27)
[2020-09-29] MEDS: INSULIN SLIDING SCALE (NOVOLOG) 1 VIAL SQ SCH ×4 (01:42→17:36)
[2020-09-29] MEDS: AMINO ACIDS 4.25%/D5W 1,000 ML IV SCH ×4 (04:02→22:55)
[2020-09-29] MEDS: ACETAMINOPHEN 1000 MG/100 ML VIAL (NON FORMULARY) IVPB PRN (04:03)
[2020-09-29] MEDS: traMADol HCL 50 MG TABLET PO PRN ×3 (08:30→19:52)
[2020-09-29] MEDS ORDERED: cefTRIAXone SODIUM 1 GM VIAL ONE (08:55)
[2020-09-29] MEDS ORDERED: DEXTROSE 5%-WATER - 50 ML IVPB ONE (08:55)
[2020-09-29] MEDS: ENOXAPARIN NA (PORCINE) 40 MG/0.4 ML DISP.SYRIN SQ SCH (09:39)
[2020-09-29] MEDS: CEFTRIAXONE 1 GM in DEXTROSE 5%-WATER - 50 ML IVPB SCH (09:39)
[2020-09-29] MEDS: PANTOPRAZOLE SODIUM 40 MG VIAL IVPUSH SCH (09:41)
[2020-09-29] MEDS: PATIENT'S OWN MEDICATION (NON-FORMULARY) (Salmeterol Xinafoate [Serevent Diskus] 50 MCG) IH SCH ×3 (09:41→21:40)
[2020-09-29 09:43] LABS: BASO % 0.3 % (0-2.0); EOS % 2.8 % (0-4.5); HEMATOCRIT 30.2 % (32.4-45.2); HEMOGLOBIN 9.7 GM/dL (10.7-15.3); LYMPH % 6.3 % (8-40); MCH 23.8 pg (25.7-33.7); MCHC 32.1 g/dl (32.0-36.0); MEAN CELL VOLUME 74.1 fl (80-96); MEAN PLT VOLUME 7.7 fl (7.5-11.1); MONO % 7.7 % (3.8-10.2); NEUT % 82.9 % (42.8-82.8); PLATELET COUNT 324 K/MM3 (134-434); RBC 4.08 M/mm3 (3.60-5.2); RDW 18.6 % (11.6-15.6); WHITE BLOOD COUNT 15.9 K/mm3 (4.0-10.0)
[2020-09-29 09:51] LABS: CALCIUM 8.5 mg/dL (8.5-10.1)
[2020-09-29 09:52] LABS: ALBUMIN 2.4 g/dl (3.4-5.0); BLOOD UREA NITROGEN 5.6 mg/dL (7-18)
[2020-09-29 09:55] LABS: CREATININE 0.3 mg/dL (0.55-1.3)
[2020-09-29 09:57] LABS: BILIRUBIN,TOTAL 0.6 mg/dL (0.2-1); TOT PROT 5.6 g/dl (6.4-8.2)
[2020-09-29] MEDS: POTASSIUM CHLORIDE ORAL LIQUID 20 MEQ/15 ML PO SCH ×2 (13:50→21:34)
[2020-09-29] MEDS ORDERED: INSULIN (NOVOLOG) ASPART 100 UNITS/ML 10ML VIAL ONE (18:18)
[2020-09-30] MEDS: traMADol HCL 50 MG TABLET PO PRN ×2 (00:15→04:31)
[2020-09-30] MEDS: INSULIN SLIDING SCALE (NOVOLOG) 1 VIAL SQ SCH ×4 (00:19→17:10)
[2020-09-30 07:41] LABS: BASO % 0.3 % (0-2.0); HEMATOCRIT 28.9 % (32.4-45.2); HEMOGLOBIN 9.4 GM/dL (10.7-15.3); LYMPH % 9.1 % (8-40); MCH 23.9 pg (25.7-33.7); MCHC 32.4 g/dl (32.0-36.0); MEAN CELL VOLUME 73.7 fl (80-96); MEAN PLT VOLUME 7.5 fl (7.5-11.1); MONO % 8.8 % (3.8-10.2); NEUT % 76.8 % (42.8-82.8); PLATELET COUNT 342 K/MM3 (134-434); RBC 3.93 M/mm3 (3.60-5.2); RDW 18.5 % (11.6-15.6); WHITE BLOOD COUNT 13.6 K/mm3 (4.0-10.0)
[2020-09-30] MEDS ORDERED: cefTRIAXone SODIUM 1 GM VIAL ONE (08:14)
[2020-09-30] MEDS ORDERED: DEXTROSE 5%-WATER - 50 ML IVPB ONE (08:14)
[2020-09-30 08:29] LABS: CALCIUM 8.5 mg/dL (8.5-10.1)
[2020-09-30 08:30] LABS: ALBUMIN 2.3 g/dl (3.4-5.0); BLOOD UREA NITROGEN 5.9 mg/dL (7-18); MAGNESIUM 1.2 mg/dL (1.8-2.4)
[2020-09-30 08:31] LABS: TOT PROT 5.6 g/dl (6.4-8.2)
[2020-09-30 08:33] LABS: CREATININE 0.4 mg/dL (0.55-1.3)
[2020-09-30 08:36] LABS: BILIRUBIN,TOTAL 0.8 mg/dL (0.2-1)
[2020-09-30] MEDS ORDERED: IRON SUCROSE INJECTION 200 MG in SODIUM CHLORIDE 90 ML IVPB ONE (09:00)
[2020-09-30] MEDS: AMINO ACIDS 4.25%/D5W 1,000 ML IV SCH (09:03)
[2020-09-30] MEDS: ENOXAPARIN NA (PORCINE) 40 MG/0.4 ML DISP.SYRIN SQ SCH (09:04)
[2020-09-30] MEDS: POTASSIUM CHLORIDE ORAL LIQUID 20 MEQ/15 ML PO SCH ×2 (09:04→21:35)
[2020-09-30] MEDS: CEFTRIAXONE 1 GM in DEXTROSE 5%-WATER - 50 ML IVPB SCH (09:05)
[2020-09-30] MEDS: PATIENT'S OWN MEDICATION (NON-FORMULARY) (Salmeterol Xinafoate [Serevent Diskus] 50 MCG) IH SCH ×2 (09:11→21:40)
[2020-09-30] MEDS ORDERED: PT OWN MED DRAWER 7, Y5N ONE (09:19)
[2020-09-30] MEDS: PANTOPRAZOLE SODIUM 40 MG VIAL IVPUSH SCH (09:27)
[2020-09-30] MEDS ORDERED: MAGNESIUM SULF 50% (8.12 MEQ/2 ML-1 GM VIAL) IVPB ONE (09:29)
[2020-09-30] MEDS: ACETAMINOPHEN 325 MG TABLET (FP) PO PRN ×3 (12:59→22:16)
[2020-09-30] MEDS: NAPH,MB-DB/K PH,MBDB POWDER PACKET PO SCH ×2 (13:01→21:35)
[2020-10-01] MEDS: INSULIN SLIDING SCALE (NOVOLOG) 1 VIAL SQ SCH ×3 (00:04→12:29)
[2020-10-01] MEDS: AMINO ACIDS 4.25%/D5W 1,000 ML IV SCH ×2 (00:20→12:30)
[2020-10-01] MEDS: ACETAMINOPHEN 325 MG TABLET (FP) PO PRN ×4 (03:05→16:35)
[2020-10-01] MEDS: NAPH,MB-DB/K PH,MBDB POWDER PACKET PO SCH ×2 (06:07→15:28)
[2020-10-01 07:32] LABS: BASO % 0.3 % (0-2.0); EOS % 7.6 % (0-4.5); HEMATOCRIT 30.4 % (32.4-45.2); HEMOGLOBIN 9.7 GM/dL (10.7-15.3); LYMPH % 9.9 % (8-40); MCH 23.7 pg (25.7-33.7); MCHC 31.9 g/dl (32.0-36.0); MEAN CELL VOLUME 74.3 fl (80-96); MEAN PLT VOLUME 7.5 fl (7.5-11.1); MONO % 9.3 % (3.8-10.2); NEUT % 72.9 % (42.8-82.8); PLATELET COUNT 327 K/MM3 (134-434); RBC 4.09 M/mm3 (3.60-5.2); RDW 18.8 % (11.6-15.6); WHITE BLOOD COUNT 10.8 K/mm3 (4.0-10.0)
[2020-10-01 08:11] LABS: BLOOD UREA NITROGEN 6.5 mg/dL (7-18); CREATININE 0.4 mg/dL (0.55-1.3); MAGNESIUM 1.4 mg/dL (1.8-2.4)
[2020-10-01 08:14] LABS: CALCIUM 8.9 mg/dL (8.5-10.1); PHOSPHOROUS 2.7 mg/dL (2.5-4.9)
[2020-10-01] MEDS ORDERED: MAGNESIUM 2GM/50ML STERILE WATER IVPB IVPB ONE (09:00)
[2020-10-01] MEDS ORDERED: PT OWN MED DRAWER 7, Y5N ONE (10:08)
[2020-10-01] MEDS ORDERED: cefTRIAXone SODIUM 1 GM VIAL ONE (10:08)
[2020-10-01] MEDS ORDERED: DEXTROSE 5%-WATER - 50 ML IVPB ONE (10:08)
[2020-10-01] MEDS: ENOXAPARIN NA (PORCINE) 40 MG/0.4 ML DISP.SYRIN SQ SCH (10:11)
[2020-10-01] MEDS: PANTOPRAZOLE SODIUM 40 MG VIAL IVPUSH SCH (10:12)
[2020-10-01] MEDS: CEFTRIAXONE 1 GM in DEXTROSE 5%-WATER - 50 ML IVPB SCH (10:12)
[2020-10-01] MEDS: PATIENT'S OWN MEDICATION (NON-FORMULARY) (Salmeterol Xinafoate [Serevent Diskus] 50 MCG) IH SCH (10:13)
[2020-10-01] MEDS: POTASSIUM CHLORIDE ORAL LIQUID 20 MEQ/15 ML PO SCH (10:17)
[2020-10-01 15:00] VITALS: BP 158/69; PULSE 75; TEMP 97.7
== END 2020-10-01 18:41 | disposition home health service (06) | DRG 337 ==
LOC: JER 04:06 → JERBED 07:38 → J7W 14:09
PROVIDERS: ATTEND Internal Medicine
PROC: 0DNW0ZZ Release Peritoneum, Open Approach (ICD-10-PCS; principal; 2020-09-09)
PROC: 0D9670Z Drainage of Stomach with Drainage Device, Via Natural or Artificial Opening (ICD-10-PCS; 2020-09-09)
PROC: 0DBU0ZZ Excision of Omentum, Open Approach (ICD-10-PCS; 2020-09-09)
DX: K56.51 Intestinal adhesions [bands], with partial obstruction (principal); I10 Essential (primary) hypertension; E78.5 Hyperlipidemia, unspecified; E11.9 Type 2 diabetes mellitus without complications; D50.9 Iron deficiency anemia, unspecified; E87.6 Hypokalemia; E83.42 Hypomagnesemia; E83.39 Other disorders of phosphorus metabolism; E66.9 Obesity, unspecified; Z68.38 Body mass index [BMI] 38.0-38.9, adult; F17.210 Nicotine dependence, cigarettes, uncomplicated; J45.909 Unspecified asthma, uncomplicated; D72.829 Elevated white blood cell count, unspecified; R33.9 Retention of urine, unspecified
CPT/HCPCS: 36415; 71045-TC-FY; 74019-TC-FY; 74177-TC; 74250-TC-FY; 74251-TC-FY; 80048; 80053; 80061; 81003; 82550; 82728; 82962; 83036; 83540; 83550; 83605; 83690; 83721; 83735; 84100; 84443; 84484; 85025; 85027; 85045; 85730; 87086; 87186; 93005; 93010; 94010; 94640; 94760; 97116-GP; 97162-GP; 99285-25; C9803; J0131; J1756; Q9967; U0003; U0005

== ENCOUNTER 2020-10-09 07:21 | Emergency (ER) | payer OTHER ==
[2020-10-09 07:41] VITALS: BMI 39.1
[2020-10-09] MEDS ORDERED: ACETAMINOPHEN 1000 MG/100 ML VIAL (NON FORMULARY) IVPB ONE (07:51)
[2020-10-09] MEDS ORDERED: ACETAMINOPHEN INJECTION 100 ML IVPB ONE (08:06)
[2020-10-09 08:19] LABS: BASO % 0.4 % (0-2.0); EOS % 3.7 % (0-4.5); HEMATOCRIT 34.2 % (32.4-45.2); HEMOGLOBIN 10.7 GM/dL (10.7-15.3); LYMPH % 11.2 % (8-40); MCH 23.2 pg (25.7-33.7); MCHC 31.4 g/dl (32.0-36.0); NEUT % 77.7 % (42.8-82.8); PLATELET COUNT 387 10^3/uL (134-434); RBC 4.62 M/mm3 (3.60-5.2); RDW 18.5 % (11.6-15.6); WHITE BLOOD COUNT 10.3 K/mm3 (4.0-10.0)
[2020-10-09 08:24] VITALS: TEMP 99.2
[2020-10-09 08:24] LABS: INR 1.31 (0.83-1.09); PROTHROMBIN TIME (PATIENT) 15.7 SEC (9.7-13.0)
[2020-10-09 08:27] LABS: ACTIVATED PTT 36.4 SECONDS (25.2-36.5)
[2020-10-09 08:45] LABS: CHLORIDE 105 mmol/L (98-107); SODIUM 140 mmol/L (136-145)
[2020-10-09 08:47] LABS: ANION GAP 7 MMOL/L (8-16); BLOOD UREA NITROGEN 5.2 mg/dL (7-18); CALCIUM 9.3 mg/dL (8.5-10.1); CO2 28 mmol/L (21-32); GLUCOSE,RANDOM 84 mg/dL (74-106)
[2020-10-09 08:48] LABS: MAGNESIUM 1.9 mg/dL (1.8-2.4)
[2020-10-09 08:50] LABS: CREATININE 0.7 mg/dL (0.55-1.3); SGOT/AST 21 U/L (15-37); SGPT/ALT 14 U/L (13-61)
[2020-10-09 08:52] LABS: BILIRUBIN,TOTAL 0.5 mg/dL (0.2-1); TOT PROT 6.8 g/dl (6.4-8.2)
[2020-10-09 08:53] LABS: ALK PHOS 75 U/L (45-117)
[2020-10-09 08:57] LABS: ALBUMIN 3.1 g/dl (3.4-5.0); VENOUS BASE EXCESS 2.2 mmol/L (-2-2); VENOUS O2 SATURATION 67.1 % (70-80); VENOUS PCO2 46.1 mmHg (38-52); VENOUS PH 7.395 (7.310-7.410)
[2020-10-09 09:38] VITALS: BP 140/72; PULSE 72
== END 2020-10-09 09:37 | disposition home or self-care (01) ==
LOC: JER 07:21
PROC: 3E0333Z Introduction of Anti-inflammatory into Peripheral Vein, Percutaneous Approach (ICD-10-PCS; principal; 2020-10-09)
DX: T81.89XA Other complications of procedures, not elsewhere classified, initial encounter (principal)
CPT/HCPCS: 36415; 71045-TC-FY; 80053; 82803; 83605; 83735; 84484; 85025; 85610; 85730; 86850; 86900; 86901; 87040; 93005; 93010; 96374; 99285-25; C9803; J0131; U0003; U0005

== ENCOUNTER 2024-01-29 09:51 | Emergency (ER) | payer OTHER ==
[2024-01-29 10:00] VITALS: RESP 16; TEMP 97.7; BMI 35.9
[2024-01-29 10:09] VITALS: BP 176/71; PULSE 63
[2024-01-29] MEDS ORDERED: ACETAMINOPHEN 325 MG TABLET (FP) ONE (10:52)
[2024-01-29] MEDS: ACETAMINOPHEN 500 MG TABLET (FP) PO ONE (10:56)
== END 2024-01-29 11:16 | disposition home or self-care (01) ==
LOC: JERFT 09:51
DX: T63.441A Toxic effect of venom of bees, accidental (unintentional), initial encounter (principal); M79.645 Pain in left finger(s)
CPT/HCPCS: 99283-25

== ENCOUNTER 2024-08-24 14:10 | Emergency (ER) | payer OTHER ==
[2024-08-24 14:19] VITALS: BP 110/74; PULSE 72; RESP 16; TEMP 98.2; BMI 33.6
[2024-08-24] MEDS ORDERED: guaiFENesin/D-METHORPHAN HB 10 ML UNIT-DOSE CUPS ONE (15:33)
[2024-08-24] MEDS ORDERED: LORATADINE 10 MG TABLET ONE (15:33)
[2024-08-24] MEDS: guaiFENesin/D-METHORPHAN HB 10 ML UNIT-DOSE CUPS PO ONE (15:37)
[2024-08-24] MEDS: LORATADINE 10 MG TABLET PO ONE (15:50)
[2024-08-24 17:41] LABS: HCV DIAGNOSTIC IN-HOUSE W/RFLX NON-REACTIVE (NONREACTIVE); HIV INTERPRETATION NEGATIVE (NEGATIVE)
== END 2024-08-24 16:40 | disposition home or self-care (01) ==
LOC: JERFT 14:10
DX: J30.9 Allergic rhinitis, unspecified (principal); R09.82 Postnasal drip
CPT/HCPCS: 0241U-QW; 36415; 71046-TC-FY; 86803; 87389; 99284-25